=== PATIENT | female | born 1940 | race Caucasian/White ===

== ENCOUNTER 2019-02-18 14:28 | Inpatient (IN) | payer MEDICARE ==
[~2019-02-18] VITALS: Ht 154.9 cm; Wt 73.9 kg
--- OUTSIDE RECORDS SUMMARY | 2019-02-18 14:32 | XMS REPORT | Continuity of Care Document ---
Author Author [employer] Address Unknown Phone Unavailable Care Team Providers Care Mathematical Engineer Name Role Phone [employer] Unavailable Unavailable Problems Problem Status Onset Date Classification Date Reported Comments Source Discharge Diagnosis: Fall 04/09/2017 04/12/2017 [facility] Discharge Diagnosis: Finger fracture 04/09/2017 04/12/2017 [facility] SDH Active 04/09/2017 [facility] FALL W/ NOSE AND HAND INJURY Active [facility] Medications Medication Details Route Status Patient Instructions Ordering Provider Order Date Source niCARdipine 40 mg/ NS 200 ml IV Soln (premix) 40 mg 40 mg, 200 mL, Rate: Titrate, Start Dose: 5 mg/hr, Titration: 2.5 mg/hr every 15 minutes, Goal(s): Goal systolic 170-180, Max Dose: 15 mg/hr, Route: IV, Dosing Weight 72.727 kg, Total Volume: 200, Start date: 04/09/17 19:21:00 CDT, Duration: 30 day, S...Notes: Same as: Cardene Concentration: (0.2 mg /1 ml ) No Longer Active 04/10/2017 [facility] Keppra 1,000 mg, Route: IV, ONCE, Dosing Weight 72.727, kg, Start date: 04/09/17 19:18:00 CDT, Stop date: 04/09/17 19:18:00 CDTNotes: Same as Keppra Mix with 100 mL NS, LR or D5W MEDICATION WASTE Product Size: 500 mg Product Wasted: ___ mg Inactive 04/10/2017 [facility] Saline Flush 0.9% 10 mL, Route: IVP, Drug Form: INJ, Dosing Weight 72.727, kg, PRN, PRN Line Flush, Start date: 04/09/17 19:16:00 CDT, Duration: 30 day, Stop date: 05/09/17 19:15:00 CDTNotes: (Same as: BD Posiflush) No Longer Active 04/10/2017 [facility] Adacel (Tdap) 0.5 ml, Route: IM, Drug Form: SUSP, Dosing Weight 72.727, kg, ONCE, Start date: 04/09/17 16:45:00 CDT, Stop date: 04/09/17 16:45:00 CDT Inactive 04/09/2017 [facility] 0.5 ML Bordetella pertussis filamentous hemagglutinin vaccine, inactivated 0.01 MG/ML / Bordetella pertussis fimbriae 2/3 vaccine, inactivated 0.01 MG/ML / Bordetella pertussis pertactin vaccine, inactivated 0.006 MG/ML / Bordetella pertussis toxoid vacci 0.5 mL, Route: IM, Drug Form: SUSP, Dosing Weight 72.727, kg, ONCE, STAT, Start date: 04/09/17 15:48:00 CDT, Stop date: 04/09/17 15:48:00 CDTNotes: (Tdap ) For Adolecent and Adult use For IM Use. Same as: Adacel (Tdap) Inactive 04/09/2017 [facility] Allergies, Adverse Reactions, Alerts No Known Medication Allergies Immunizations No Data Provided for This Section Results Order Name Results Value Reference Range Date Interpretation Comments Source DRUG SCREEN U Phencyc Scr Negative *NA* (04/09/17 8:19 PM) Negative 04/10/2017 [facility] DRUG SCREEN U Cannab Scr Negative *NA* (04/09/17 8:19 PM) Negative 04/10/2017 [facility] DRUG SCREEN U Opiate Scr Negative *NA* (04/09/17 8:19 PM) Negative 04/10/2017 [facility] DRUG SCREEN UDS Note See Note *NA* (04/09/17 8:19 PM) 04/10/2017 [facility] DRUG SCREEN U Benzodia Scr Negative *NA* (04/09/17 8:19 PM) Negative 04/10/2017 [facility] DRUG SCREEN U Cocaine Scr Negative *NA* (04/09/17 8:19 PM) Negative 04/10/2017 [facility] DRUG SCREEN U Amph Scr Negative *NA* (04/09/17 8:19 PM) Negative 04/10/2017 [facility] DRUG SCREEN U Sanjuana Scr Negative *NA* (04/09/17 8:19 PM) Negative 04/10/2017 [facility] URINE AND STOOL UA WBC 0-2 /HPF None Seen /HPF 04/10/2017 [facility] URINE AND STOOL UA Sq Epi Rare /LPF Few /LPF 04/10/2017 [facility] URINE AND STOOL UA RBC None Seen (04/09/17 8:19 PM) 0 - 2 04/10/2017 [facility] URINE AND STOOL UA Leuk Est Negative (04/09/17 8:19 PM) Negative 04/10/2017 [facility] URINE AND STOOL UA Ketones Negative mg/dL Negative mg/dL 04/10/2017 [facility] URINE AND STOOL UA Nitrite Negative (04/09/17 8:19 PM) Negative 04/10/2017 [facility] URINE AND STOOL UA Spec Grav 1.010 <=1.030 04/10/2017 [facility] URINE AND STOOL UA pH 7.5 5.0 - 8.0 04/10/2017 [facility] URINE AND STOOL UA Protein Negative mg/dL Negative mg/dL 04/10/2017 [facility] URINE AND STOOL UA Glucose Negative mg/dL Negative mg/dL 04/10/2017 [facility] URINE AND STOOL UA Bili Negative *NA* (04/09/17 8:19 PM) Negative 04/10/2017 [facility] URINE AND STOOL UA Blood Negative (04/09/17 8:19 PM) Negative 04/10/2017 [facility] URINE AND STOOL UA Urobilinogen 0.2 0.1 - 1.0 04/10/2017 [facility] URINE AND STOOL UA Turbidity Clear (04/09/17 8:19 PM) Clear 04/10/2017 [facility] URINE AND STOOL UA Color Yellow *NA* (04/09/17 8:19 PM) Yellow 04/10/2017 [facility] CARDIAC ENZYMES Troponin-I 0.04 0.00 - 0.40 04/10/2017 [facility] CARDIAC ENZYMES Troponin-T <0.010 0.000 - 0.100 04/10/2017 [facility] CARDIAC ENZYMES Total CK 232 12 - 191 04/10/2017 [facility] CARDIAC ENZYMES CK MB 2.4 0.5 - 3.6 04/10/2017 [facility] CARDIAC ENZYMES CK MB Index 1.0 0.0 - 2.5 04/10/2017 [facility] ELECTROLYTES Chloride Lvl 107 95 - 109 04/10/2017 [facility] ELECTROLYTES AGAP 14.9 10.0 - 20.0 04/10/2017 [facility] ELECTROLYTES Calcium Lvl 9.3 8.5 - 10.5 04/10/2017 [facility] ELECTROLYTES CO2 27 24 - 32 04/10/2017 [facility] ELECTROLYTES Potassium Lvl 4.9 3.5 - 5.1 04/10/2017 Result Comment: Specimen Moderately Hemolyzed. [facility] ELECTROLYTES Sodium Lvl 144 135 - 145 04/10/2017 [facility] ELECTROLYTES eGFR 90 04/10/2017 Result Comment: The eGFR is calculated using the CKD-EPI formula. In most young, healthy individuals the eGFR will be >90 mL/min/1.73m2. The eGFR declines with age. An eGFR of 60-89 may be normal in some populations, particularly the elderly, for whom the CKD-EPI formula has not been extensively validated. Use of the eGFR is not recommended in the following populations:

Individuals with unstable creatinine concentrations, including patients and those with serious co-morbid conditions.

Patients with extremes in muscle mass or diet.

The data above are obtained from the National Kidney Disease Education Program (NKDEP) which additionally recommends that when the eGFR is used in patients with extremes of body mass index for purposes of drug dosing, the eGFR should be multiplied by the estimated BMI. [facility] ELECTROLYTES BUN 12 7 - 22 04/10/2017 [facility] ELECTROLYTES Glucose Lvl 106 70 - 99 04/10/2017 [facility] ELECTROLYTES Creatinine Lvl 0.59 0.50 - 1.40 04/10/2017 [facility] BLOOD BANK RESULTS ABO/Rh O POS 04/10/2017 [facility] BLOOD BANK RESULTS Antibody Scrn Negative (04/09/17 7:29 PM) 04/10/2017 [facility] CHEM PANEL Lactic Acid Lvl 1.0 0.5 - 2.2 04/10/2017 [facility] HEMATOLOGY Segs-Bands # 12.3 1.5 - 8.1 04/10/2017 [facility] HEMATOLOGY Eosinophils 0.5 0.0 - 4.0 04/10/2017 [facility] HEMATOLOGY Eosinophils # 0.1 0.0 - 0.5 04/10/2017 [facility] HEMATOLOGY Monocytes # 0.6 0.0 - 0.8 04/10/2017 [facility] HEMATOLOGY Lymphocytes # 1.3 1.0 - 5.5 04/10/2017 [facility] HEMATOLOGY Basophils 0.1 0.0 - 1.0 04/10/2017 [facility] HEMATOLOGY Monocytes 4.4 2.0 - 12.0 04/10/2017 [facility] HEMATOLOGY Lymphocytes 8.8 20.0 - 40.0 04/10/2017 [facility] HEMATOLOGY Segs 86.2 45.0 - 75.0 04/10/2017 [facility] HEMATOLOGY MPV 9.7 7.4 - 10.4 04/10/2017 [facility] HEMATOLOGY RDW 15.6 11.5 - 14.5 04/10/2017 [facility] HEMATOLOGY Platelet 266 133 - 450 04/10/2017 [facility] HEMATOLOGY MCHC 32.7 32.0 - 36.0 04/10/2017 [facility] HEMATOLOGY MCH 28.6 27.0 - 31.0 04/10/2017 [facility] HEMATOLOGY Hct 44.2 36.0 - 48.0 04/10/2017 [facility] HEMATOLOGY MCV 87.5 80.0 - 98.0 04/10/2017 [facility] HEMATOLOGY Hgb 14.5 12.0 - 16.0 04/10/2017 [facility] HEMATOLOGY RBC 5.05 4.20 - 5.40 04/10/2017 [facility] HEMATOLOGY WBC 14.3 3.7 - 10.4 04/10/2017 [facility] HEMATOLOGY PT 12.7 12.0 - 14.7 04/10/2017 [facility] HEMATOLOGY INR 0.93 0.85 - 1.17 04/10/2017 [facility] HEMATOLOGY PTT 27.8 22.9 - 35.8 04/10/2017 [facility] HEMATOLOGY K-time Rapid 1.8 0.6 - 2.3 04/10/2017 [facility] HEMATOLOGY Angle Rapid 76 64 - 80 04/10/2017 [facility] HEMATOLOGY ACT (TEG) Rapid 105 86 - 118 04/10/2017 [facility] HEMATOLOGY R-time Rapid 0.6 0.4 - 0.7 04/10/2017 [facility] HEMATOLOGY Split Point Rapid 0.5 04/10/2017 [facility] HEMATOLOGY G-value Rapid 8.7 5.0 - 11.6 04/10/2017 [facility] HEMATOLOGY Max Amplitude Rapid 63 52 - 71 04/10/2017 [facility] HEMATOLOGY Estimated % Lysis Rapid 0.0 0.0 - 7.5 04/10/2017 [facility] TOXICOLOGY Etoh (%) <0.003 % 04/10/2017 [facility] TOXICOLOGY Ethanol Lvl <3.0 mg/dL 04/10/2017 [facility] Pathology Reports No Data Provided for This Section Diagnostic Reports Report Value Date Source Hand 3 views DX EXAM: XR RIGHT HAND 3 VIEWS DATE: 04/09/2017 7:33 PM CDT INDICATION: Splinting of fracture COMPARISON: None. TECHNIQUE: PA, lateral and oblique radiographs of the hand UT SECTION: ER FINDINGS: Splint overlies the fifth phalanx, limiting evaluation of fine osseous detail. No significant change in appearance of the comminuted right proximal fifth phalanx base fracture. No other acute fracture or malalignment is seen. Moderate soft tissue swelling overlying the ulnar aspect of the hand. IMPRESSION: No significant change in appearance of the comminuted proximal right fifth phalanx base fracture after splinting. 04/09/2017 [facility] Brain wo contrast CT EXAM: CT HEAD WITHOUT CONTRAST DATE: 04/09/2017 8:30 PM CDT INDICATION: 76 years old Female patient with history of - stability. TECHNIQUE: Multiple axial images were obtained through the head from vertex to the skull base. Axial bone algorithm reconstruction images are provided. COMPARISON: CT head 04/09/2017 at 1557 hours. FINDINGS: Previously identified suspected small subdural hematoma along the falx is less conspicuous on the current exam. No acute new intracranial hemorrhage is identified. The ventricles are normal in size. Mild periventricular and subcortical white matter hypodensity, nonspecific and most commonly secondary to chronic small vessel ischemia. The apple-white matter differentiation is maintained. No pathologic extra axial fluid is identified. Polypoid mucosal thickening of bilateral maxillary sinuses. No mastoid effusion is identified. IMPRESSION: Previously identified suspected small subdural hematoma along the falx is less conspicuous on the current exam. No acute new intracranial hemorrhage is identified. 04/09/2017 [facility] Chest 1view DX EXAM: XR CHEST 1 VIEW DATE: 04/09/2017 8:01 PM CDT INDICATION: - malignant HTN COMPARISON: None. TECHNIQUE: AP chest UT SECTION: ER FINDINGS: Lines, tubes and hardware: None. Lungs and pleura: No pulmonary or pleural based abnormality is identified. Pulmonary vascularity is normal. Heart and mediastinum: Cardiomegaly present. The mediastinal contours are normal. Bones: No acute bony abnormality is identified. Degenerative changes are seen throughout the thoracic spine. IMPRESSION: Cardiomegaly with no acute cardiopulmonary abnormality. 04/09/2017 [facility] Hand 3 views DX Right hand 3 views DX, 04/09/2017 3:48 PM CDT HISTORY: Pain, Trauma - FALL COMPARISON: None FINDINGS: Acute comminuted intra-articular fracture involving the base of the 5th proximal phalanx. Associated dorsal angulation. No additional fractures. Associated soft tissue swelling. IMPRESSION: Acute comminuted intra-articular fracture of the 5th proximal phalanx. SL: [id number] 04/09/2017 [facility] Knee 3 views DX Left knee 3 views DX, 04/09/2017 3:48 PM CDT HISTORY: Pain, Trauma - FALL COMPARISON: None FINDINGS: No evidence for acute fracture. Joint space are maintained. Soft tissues unremarkable. Negative for joint effusion. IMPRESSION: No acute osseous abnormality SL: [id number] 04/09/2017 [facility] Facial bone wo contrast CT CT face without contrast 04/09/2017 HISTORY: Fall on face. Multiple abrasions. PROCEDURE: 2 mm axial images through the face were obtained without contrast. Coronal and sagittal reconstructed images were performed. DLP: [id number] No prior exams are available for comparison. FINDINGS: The visualized mastoid air cells are clear. Bilateral maxillary mucous retention cysts are present, left greater than right. There is mild left prefrontal scalp soft tissue swelling. Mandible is intact. Pterygoid plates, maxillary sinus vital, lateral orbital vital, zygomatic arches, nasal bones, and nasal septum are intact. Right nasal septal deviation is noted. There is mild soft tissue swelling anterior to the mandible. Intraorbital fat, extraocular muscles, and optic nerves are grossly unremarkable. Left holly bullosa is noted. The ostiomeatal complex is patent bilaterally. The inferior orbital vital are intact on the coronal imaging. Possible hemangioma in the dense vertebral body is incompletely characterized. IMPRESSION: No acute facial fracture identified. SL: YUKI 04/09/2017 [facility] Brain wo contrast CT CT head without contrast 04/09/2017 HISTORY: Face abrasions. Fall. PROCEDURE: Multiple axial images from the skull base to the skull vertex were obtained without contrast. Coronal and sagittal reconstructed images were performed. DLP: [id number] No prior exams are available for comparison. FINDINGS: The visualized mastoid air cells are clear. Bilateral maxillary mucous retention cysts are noted. There is no air-fluid level in the visualized paranasal sinuses. Calvarium is intact. No parenchymal hemorrhage, midline shift, hydrocephalus, or mass lesion is present. There is increased hyperdense thickening of the interhemispheric fissure measuring 3 mm. No associated mass effect is noted. IMPRESSION: 1. Possible acute 3 mm interhemispheric fissure subdural hematoma. 2. No parenchymal hemorrhage, infarct, or mass lesion. Findings were discussed with Dr. Henry by Dr. Hutton at 4:35 PM on 04/09/2017. SL: YUKI 04/09/2017 [facility] Consultation Notes No Data Provided for This Section Discharge Summaries No Data Provided for This Section History and Physicals No Data Provided for This Section Vital Signs Vital Sign Value Date Comments Source Respitory Rate 19 04/10/2017 [facility] Temperature Oral (F) 98.4 F 04/10/2017 [facility] Heart Rate 87 04/10/2017 [facility] Systolic (mm Hg) 153 04/10/2017 [facility] Diastolic (mm Hg) 78 04/10/2017 [facility] Temperature Oral (F) 98.6 F 04/10/2017 [facility] Respitory Rate 17 04/10/2017 [facility] Systolic (mm Hg) 156 04/10/2017 [facility] Diastolic (mm Hg) 82 04/10/2017 [facility] Heart Rate 95 04/10/2017 [facility] Systolic (mm Hg) 144 04/10/2017 [facility] Diastolic (mm Hg) 89 04/10/2017 [facility] Respitory Rate 20 04/10/2017 [facility] Heart Rate 94 04/10/2017 [facility] Weight 72.727 04/10/2017 [facility] BMI Calculated 26.68 04/10/2017 [facility] Height 165.1 cm 04/10/2017 [facility] Temperature Oral (F) 98.0 F 04/10/2017 [facility] Heart Rate 95 04/09/2017 [facility] Respitory Rate 18 04/09/2017 [facility] Systolic (mm Hg) 194 04/09/2017 [facility] Diastolic (mm Hg) 79 04/09/2017 [facility] Systolic (mm Hg) 198 04/09/2017 [facility] Diastolic (mm Hg) 91 04/09/2017 [facility] Heart Rate 96 04/09/2017 [facility] Respitory Rate 18 04/09/2017 [facility] Systolic (mm Hg) 194 04/09/2017 [facility] Diastolic (mm Hg) 104 04/09/2017 [facility] Respitory Rate 18 04/09/2017 [facility] Heart Rate 97 04/09/2017 [facility] Weight 72.727 04/09/2017 [facility] BMI Calculated 26.68 04/09/2017 [facility] Temperature Oral (F) 98.0 F 04/09/2017 [facility] Height 165.1 cm 04/09/2017 [facility] Encounters Location Location Details Encounter Type Encounter Number Reason For Visit Attending Provider ADM Date DC Date Status Source [facility] Emergency [id number] Miguel Angel Hernandez 04/09/2017 04/09/2017 [facility] Emergency [id number] Ryan Benson 04/10/2017 04/10/2017 [facility] Procedures No Data Provided for This Section Assessment and Plan No Data Provided for This Section Plan of Care No Data Provided for This Section Social History Social History Date Source Social History TypeResponse Smoking Status Never smoker; Exposure to Tobacco Smoke None; Cigarette Smoking Last 365 Days No; Reg Smoking Cessation Counseling No 04/10/2017 [facility] Social History TypeResponse Smoking Status Never smoker; Exposure to Tobacco Smoke None; Cigarette Smoking Last 365 Days No; Reg Smoking Cessation Counseling No 04/10/2017 [facility] Family History No Data Provided for This Section Advance Directives No Data Provided for This Section Functional Status No Data Provided for This Section
--- OUTSIDE RECORDS SUMMARY | 2019-02-18 14:33 | XMS REPORT | Summary of Care ---
Author Author [facility] Address Unknown Phone Unavailable Encounter ALINE Ramirez(FENG) [phone] Date(s): 04/09/17 - 04/09/17 [facility] [address] [facility] provided by [facility] [place] [address]- Discharge Diagnosis: Fall Discharge Diagnosis: Finger fracture Discharge Disposition: Home or Self Care Attending Physician: Sterling Renteria MD Admitting Physician: Ryan Benson MD Vital Signs 1 2 3 Most recent to oldest [Reference Range]: 165.1 cm (04/09/17 7:01 PM) Height 98.4 DegF (04/09/17 11:23 PM) 98.6 DegF (04/09/17 10:51 PM) 98.0 DegF (04/09/17 7:01 PM) Temperature Oral [96.4-99.1 DegF] 153/78 mmHg *HI* (04/09/17 11:23 PM) 156/82 mmHg *HI* (04/09/17 9:30 PM) 144/89 mmHg *HI* (04/09/17 8:40 PM) Blood Pressure [90-140/60-90 mmHg] 19 BRMIN (04/09/17 11:23 PM) 17 BRMIN (04/09/17 9:30 PM) 20 BRMIN (04/09/17 8:40 PM) Respiratory Rate [14-20 BRMIN] 87 bpm (04/09/17 11:23 PM) 95 bpm (04/09/17 9:30 PM) 94 bpm (04/09/17 8:40 PM) Peripheral Pulse Rate [60-100 bpm] 72.727 kg (04/09/17 7:01 PM) Weight 26.68 m2 (04/09/17 7:01 PM) Body Mass Index Problem List No data available for this section Allergies, Adverse Reactions, Alerts Substance Reaction Severity Status NKDA Active Medications Keppra + sodium chloride 0.9% 100 mL INJ (for IV set) 100 mL 1,000 mg, Route: IV, ONCE, Dosing Weight 72.727, kg, Start date: 04/09/17 19:18: 00 CDT, Stop date: 04/09/17 19:18:00 CDT Notes: Same as KeppraMix with 100 mL NS, LR or D5W MEDICATION WASTE Prod uct Size: 500 mgProduct Wasted: ___ mg Start Date: 04/09/17 Stop Date: 04/09/17 Status: Completed niCARdipine 40 mg/ NS 200 ml IV Soln (premix) 40 mg 40 mg, 200 mL, Rate: Titrate, Start Dose: 5 mg/hr, Titration: 2.5 mg/hr every 15 minutes, Goal(s): Goal systolic 170-180, Max Dose: 15 mg/hr, Route: IV, Dosing Weight 72.727 kg, Total Volume: 200, Start date: 04/09/17 19:21:00 CDT, Duration : 30 day, S... Notes: Same as: CardeneConcentration: (0.2 mg /1 ml ) Start Date: 04/09/17 Stop Date: 04/10/17 Status: Discontinued Saline Flush 0.9% 10 mL, Route: IVP, Drug Form: INJ, Dosing Weight 72.727, kg, PRN, PRN Line Flush , Start date: 04/09/17 19:16:00 CDT, Duration: 30 day, Stop date: 05/09/17 19:15 :00 CDT Notes: (Same as: BD Posiflush) Start Date: 04/09/17 Stop Date: 04/10/17 Status: Discontinued Results BLOOD BANK RESULTS Most recent to 1 oldest [Reference Range]: ABO/Rh O POS *Unknown* (04/09/17 7:29 PM) Antibody Scrn Negative (04/09/17 7:29 PM) ELECTROLYTES Most recent to 1 oldest [Reference Range]: Sodium Lvl [135-145 144 mEq/L mEq/L] (04/09/17 8:16 PM) Potassium Lvl 4.9 mEq/L 1 [3.5-5.1 mEq/L] (04/09/17 8:16 PM) Chloride Lvl [95-109 107 mEq/L mEq/L] (04/09/17 8:16 PM) CO2 [24-32 mEq/L] 27 mEq/L (04/09/17 8:16 PM) AGAP [10.0-20.0 14.9 mEq/L mEq/L] (04/09/17 8:16 PM) 1Result Comment: Specimen Moderately Hemolyzed. CHEM PANEL Most recent to 1 oldest [Reference Range]: Creatinine Lvl 0.59 mg/dL [0.50-1.40 mg/dL] (04/09/17 8:16 PM) eGFR 90 mL/min/1.73m2 1 *NA* (04/09/17 8:16 PM) BUN [7-22 mg/dL] 12 mg/dL (04/09/17 8:16 PM) Glucose Lvl [70-99 106 mg/dL mg/dL] *HI* (04/09/17 8:16 PM) Calcium Lvl 9.3 mg/dL [8.5-10.5 mg/dL] (04/09/17 8:16 PM) Lactic Acid Lvl 1.0 mMol/L [0.5-2.2 mMol/L] (04/09/17 7:29 PM) 1Result Comment: The eGFR is calculated using the [...] from the National Kidney Disease Education Program ( NKDEP) which additionally recommends that when the eGFR is used in patients with extremes of body mass index for purposes of drug dosing, the eGFR should be mul tiplied by the estimated BMI. CARDIAC ENZYMES Most recent to 1 oldest [Reference Range]: Total CK [12-191 232 unit/L unit/L] *HI* (04/09/17 8:16 PM) CK MB [0.5-3.6 2.4 ng/mL ng/mL] (04/09/17 8:16 PM) CK MB Index 1.0 [0.0-2.5] (04/09/17 8:16 PM) Troponin-T <0.010 ng/mL [0.000-0.100 ng/mL] (04/09/17 8:16 PM) Troponin-I 0.04 ng/mL [0.00-0.40 ng/mL] (04/09/17 8:16 PM) DRUG SCREEN Most recent to 1 oldest [Reference Range]: U Amph Scr Negative [Negative] *NA* (04/09/17 8:19 PM) U Sanjuana Scr Negative [Negative] *NA* (04/09/17 8:19 PM) U Benzodia Scr Negative [Negative] *NA* (04/09/17 8:19 PM) U Cocaine Scr Negative [Negative] *NA* (04/09/17 8:19 PM) U Opiate Scr Negative [Negative] *NA* (04/09/17 8:19 PM) U Phencyc Scr Negative [Negative] *NA* (04/09/17 8:19 PM) U Cannab Scr Negative [Negative] *NA* (04/09/17 8:19 PM) UDS Note See Note *NA* (04/09/17 8:19 PM) TOXICOLOGY Most recent to 1 oldest [Reference Range]: Etoh (%) <0.003 % (04/09/17 7:29 PM) Ethanol Lvl <3.0 mg/dL (04/09/17 7:29 PM) URINE AND STOOL Most recent to 1 oldest [Reference Range]: UA Turbidity [Clear] Clear (04/09/17 8:19 PM) UA Color [Yellow] Yellow *NA* (04/09/17 8:19 PM) UA pH [5.0-8.0] 7.5 (04/09/17 8:19 PM) UA Spec Grav 1.010 [<=1.030] (04/09/17 8:19 PM) UA Glucose [Negative Negative mg/dL mg/dL] (04/09/17 8:19 PM) UA Blood [Negative] Negative (04/09/17 8:19 PM) UA Ketones [Negative Negative mg/dL mg/dL] *NA* (04/09/17 8:19 PM) UA Protein [Negative Negative mg/dL mg/dL] (04/09/17 8:19 PM) UA Urobilinogen 0.2 EU/dL [0.1-1.0 EU/dL] (04/09/17 8:19 PM) UA Bili [Negative] Negative *NA* (04/09/17 8:19 PM) UA Leuk Est Negative [Negative] (04/09/17 8:19 PM) UA Nitrite Negative [Negative] (04/09/17 8:19 PM) UA WBC [None Seen 0-2 /HPF /HPF] (04/09/17 8:19 PM) UA RBC [0-2] None Seen (04/09/17 8:19 PM) UA Sq Epi [Few /LPF] Rare /LPF (04/09/17 8:19 PM) HEMATOLOGY Most recent to 1 oldest [Reference Range]: WBC [3.7-10.4 K/CMM] 14.3 K/CMM *HI* (04/09/17 7:29 PM) RBC [4.20-5.40 5.05 M/CMM M/CMM] (04/09/17 7:29 PM) Hgb [12.0-16.0 g/dL] 14.5 g/dL (04/09/17 7:29 PM) Hct [36.0-48.0 %] 44.2 % (04/09/17 7:29 PM) MCV [80.0-98.0 fL] 87.5 fL (04/09/17 7:29 PM) MCH [27.0-31.0 pg] 28.6 pg (04/09/17 7:29 PM) MCHC [32.0-36.0 32.7 g/dL g/dL] (04/09/17 7:29 PM) RDW [11.5-14.5 %] 15.6 % *HI* (04/09/17 7:29 PM) Platelet [133-450 266 K/CMM K/CMM] (04/09/17 7:29 PM) MPV [7.4-10.4 fL] 9.7 fL (04/09/17 7:29 PM) Segs [45.0-75.0 %] 86.2 % *HI* (04/09/17 7:29 PM) Lymphocytes 8.8 % [20.0-40.0 %] *LOW* (04/09/17 7:29 PM) Monocytes [2.0-12.0 4.4 % %] (04/09/17 7:29 PM) Eosinophils [0.0-4.0 0.5 % %] (04/09/17 7:29 PM) Basophils [0.0-1.0 0.1 % %] (04/09/17 7:29 PM) Segs-Bands # 12.3 K/CMM [1.5-8.1 K/CMM] *HI* (04/09/17 7:29 PM) Lymphocytes # 1.3 K/CMM [1.0-5.5 K/CMM] (04/09/17 7:29 PM) Monocytes # [0.0-0.8 0.6 K/CMM K/CMM] (04/09/17 7:29 PM) Eosinophils # 0.1 K/CMM [0.0-0.5 K/CMM] (04/09/17 7:29 PM) PT [12.0-14.7 12.7 seconds seconds] (04/09/17 7:29 PM) INR [0.85-1.17] 0.93 (04/09/17 7:29 PM) PTT [22.9-35.8 27.8 seconds seconds] (04/09/17 7:29 PM) ACT (TEG) Rapid 105 seconds [86-118 seconds] (04/09/17 7:29 PM) [place] Rapid 0.5 minutes *NA* (04/09/17 7:29 PM) R-time Rapid 0.6 minutes [0.4-0.7 minutes] (04/09/17 7:29 PM) K-time Rapid 1.8 minutes [0.6-2.3 minutes] (04/09/17 7:29 PM) Angle Rapid [64-80 76 degrees degrees] (04/09/17:29 PM) Max Amplitude Rapid 63 mm [52-71 mm] (04/09/17 7:29 PM) G-value Rapid 8.7 K d/sc [5.0-11.6 K d/sc] (04/09/17 7:29 PM) Estimated % Lysis 0.0 % Rapid [0.0-7.5 %] (04/09/17 7:29 PM) Immunizations No data available for this section Procedures No data available for this section Social History Social History Type Response Smoking Status Never smoker; Exposure to Tobacco Smoke None; Cigarette Smoking Last 365 Days No; Reg Smoking Cessation Counseling No Assessment and Plan No data available for this section
--- OUTSIDE RECORDS SUMMARY | 2019-02-18 14:34 | XMS REPORT | Summary of Care ---
Author Author [facility] Organization [facility] Address Unknown Phone Unavailable Encounter HQ Ashley(FENG) [phone] Date(s): 04/09/17 - 04/09/17 [facility] [address] [place] [address]- Discharge Disposition: Home or Self Care Attending Physician: Miguel Angel Hernandez DO Vital Signs 1 2 3 Most recent to oldest [Reference Range]: 165.1 cm (04/09/17 3:01 PM) Height 98.0 DegF (04/09/17 3:01 PM) Temperature Oral [96.4-99.1 DegF] 194/79 mmHg *HI* (04/09/17 5:45 PM) 198/91 mmHg *HI* (04/09/17 5:38 PM) 194/104 mmHg *HI* (04/09/17 5:30 PM) Blood Pressure [90-140/60-90 mmHg] 18 BRMIN (04/09/17 5:45 PM) 18 BRMIN (04/09/17 5:38 PM) 18 BRMIN (04/09/17 5:30 PM) Respiratory Rate [14-20 BRMIN] 95 bpm (04/09/17 5:45 PM) 96 bpm (04/09/17 5:38 PM) 97 bpm (04/09/17 5:30 PM) Peripheral Pulse Rate [60-100 bpm] 72.727 kg (04/09/17 3:01 PM) Weight 26.68 m2 (04/09/17 3:01 PM) Body Mass Index Problem List No data available for this section Allergies, Adverse Reactions, Alerts Substance Reaction Severity Status NKDA Active Medications Adacel (Tdap) 0.5 ml, Route: IM, Drug Form: SUSP, Dosing Weight 72.727, kg, ONCE, Start date: 04/09/17 16:45:00 CDT, Stop date: 04/09/17 16:45:00 CDT Start Date: 04/09/17 Stop Date: 04/09/17 Status: Deleted tetanus/diphth/pertussis (Tdap) adult/adol 5 units-2 units-15.5 mcg/0.5 mL intra muscular suspension 0.5 mL, Route: IM, Drug Form: SUSP, Dosing Weight 72.727, kg, ONCE, STAT, Start date: 04/09/17 15:48:00 CDT, Stop date: 04/09/17 15:48:00 CDT Notes: (Tdap ) For Adolecent and Adult use For IM Use. Same as: Adacel (Tdap) Start Date: 04/09/17 Stop Date: 04/09/17 Status: Ordered Results No data available for this section Immunizations No data available for this section Procedures No data available for this section Social History Social History Type Response Smoking Status Never smoker; Exposure to Tobacco Smoke None; Cigarette Smoking Last 365 Days No; Reg Smoking Cessation Counseling No Assessment and Plan No data available for this section
[2019-02-18] MEDS ORDERED: ACETAMINOPHEN 325 MG TAB PO ONE (15:00)
[2019-02-18] MEDS ORDERED: FAMOTIDINE 20 MG/2 ML VIAL IV ONE (15:00)
[2019-02-18] MEDS ORDERED: ASPIRIN 81 MG CHEW TAB PO ONE ×2 (15:00→16:30)
[2019-02-18] MEDS ORDERED: SODIUM CHLORIDE 0.9% 1000ML 1,000 ML IV STA (15:04)
[2019-02-18] MEDS ORDERED: METOPROLOL TARTRATE INJ 1 MG/ML VIAL IV SCH (15:15)
[2019-02-18 15:24] LABS: BASOPHILS # (AUTO) 0.1 (0.0-0.1); BASOPHILS % 0.7 % (0.0-1.0); EOSINOPHILS # (AUTO) 0.4 (0.0-0.4); EOSINOPHILS % 3.6 % (0.0-6.0); HEMATOCRIT 39.6 % (34.2-44.1); HEMOGLOBIN 12.9 g/dL (12.0-16.0); LYMPHOCYTES # (AUTO) 0.9 (1.0-3.2); LYMPHOCYTES % 8.9 % (18.0-39.1); MEAN CORPUSCULAR HEMOGLOBIN 28.6 pg (28-32); MEAN CORPUSCULAR HGB CONC 32.6 g/dL (31-35); MEAN CORPUSCULAR VOLUME 87.8 fL (81-99); MONOCYTES # (AUTO) 0.6 (0.2-0.8); MONOCYTES % 5.7 % (4.4-11.3); NEUTROPHILS # (AUTO) 8.5 (2.1-6.9); NEUTROPHILS % 80.8 % (38.7-80.0); PLATELET COUNT 331 x10e3/uL (140-360); RED BLOOD COUNT 4.51 x10e6/uL (3.6-5.1); RED CELL DISTRIBUTION WIDTH 14.3 % (11.7-14.4)
[2019-02-18 15:44] LABS: ALANINE AMINOTRANSFERASE 44 IU/L (0-55); ALBUMIN 3.3 g/dL (3.5-5.0); ALBUMIN/GLOBULIN RATIO 0.8 (0.8-2.0); ALKALINE PHOSPHATASE 125 IU/L (40-150); ANION GAP 13.6 mmol/L (8-16); BLOOD UREA NITROGEN 19 mg/dL (7-26); BUN/CREATININE RATIO 22 (6-25); CALCIUM 9.1 mg/dL (8.4-10.2); CARBON DIOXIDE 24 mmol/L (22-29); CHLORIDE 107 mmol/L (98-107); CREATINE KINASE 57 IU/L (29-168); CREATININE, SERUM 0.87 mg/dL (0.57-1.11); EST GLOMERULAR FILTRATION RATE > 60 ML/MIN (60-); GLUCOSE 109 mg/dL (74-118); POTASSIUM 3.6 mmol/L (3.5-5.1); SODIUM 141 mmol/L (136-145)
--- NOTE | 2019-02-18 15:53 | Diagnostic Imaging Report ---
EXAMINATION: CHEST SINGLE (PORTABLE) INDICATION: Shortness of breath COMPARISON: None FINDINGS: TUBES and LINES: None. LUNGS: The lungs are moderately inflated. There is perihilar fullness and indistinctness of the pulmonary vasculature. Mild patchy opacity at the bilateral lung bases. PLEURA: No large pleural effusion. No pneumothorax. HEART AND MEDIASTINUM: Cardiomegaly. Atherosclerotic calcifications of the thoracic aorta. BONES AND SOFT TISSUES: No acute fracture or dislocation. UPPER ABDOMEN: No free air under the diaphragm. IMPRESSION: Cardiomegaly and pulmonary interstitial edema. Patchy opacity at the bilateral lung bases, likely subsegmental atelectasis or a component of airspace edema. Signed by: Faizan Yeboah MD on 02/18/2019 3:50 PM
[2019-02-18 15:59] LABS: BILIRUBIN,URINE NEGATIVE (NEGATIVE); CLARITY,URINE CLEAR (CLEAR); COLOR,URINE YELLOW (YELLOW); KETONES,URINE NEGATIVE (NEGATIVE); LEUKOCYTE ESTERASE ,URINE NEGATIVE (NEGATIVE); NITRITE,URINE NEGATIVE (NEGATIVE); PROTEIN,URINE DIPSTICK NEGATIVE (NEGATIVE); URINE UROBILINOGEN 0.2 mg/dL (0.2 - 1)
[2019-02-18 16:05] LABS: EPITHELIAL CELLS,URINE RARE /LPF; RBC,URINE 0-5 /HPF (0-5); WBC,URINE (MAN) 0-5 /HPF (0-5)
[2019-02-18] MEDS ORDERED: ENOXAPARIN INJ 80 MG/0.8 ML SYR SC ONE (16:21)
[2019-02-18] MEDS ORDERED: SODIUM CHLORIDE FLUSH 10 ML SYR INJ PRN (16:30)
[2019-02-18] MEDS ORDERED: LISINOPRIL 10 MG TAB PO SCH (17:00)
--- OUTSIDE RECORDS SUMMARY | 2019-02-18 17:02 | XMS REPORT | Continuity of Care Document ---
Author Author [facility] Address Unknown Phone Unavailable Care Team Providers Care Tax Representative Name Role Phone [employer] Unavailable Unavailable Problems Problem Status Onset Date Classification Date Reported Comments Source Discharge Diagnosis: Fall 04/09/2017 04/12/2017 [facility] Discharge Diagnosis: Finger fracture 04/09/2017 04/12/2017 [facility] SDH Active 04/09/2017 [facility] FALL W/ NOSE AND HAND INJURY Active [facility] Medications Medication Details Route Status Patient Instructions [...] /1 ml ) No Longer Active 04/10/2017 [facility] Keppra 1,000 mg, Route: IV, ONCE, Dosing Weight 72.727, kg, Start date: 04/09/17 19:18:00 CDT, Stop date: 04/09/17 19:18:00 CDTNotes: Same as Keppra Mix with 100 mL NS, LR or D5W MEDICATION WASTE Product Size: 500 mg Product Wasted: ___ mg Inactive 04/10/2017 [facility] Saline Flush 0.9% 10 mL, Route: IVP, Drug Form: INJ, Dosing Weight 72.727, kg, PRN, PRN Line Flush, Start date: 04/09/17 19:16:00 CDT, Duration: 30 day, Stop date: 05/09/17 19:15:00 CDTNotes: (Same as: BD Posiflush) No Longer Active 04/10/2017 [facility] Adacel (Tdap) 0.5 ml, Route: IM, Drug Form: SUSP, Dosing Weight 72.727, kg, ONCE, Start date: 04/09/17 16:45:00 CDT, Stop date: 04/09/17 16:45:00 CDT Inactive 04/09/2017 [facility] 0.5 ML Bordetella pertussis filamentous hemagglutinin vaccine, [...] Use. Same as: Adacel (Tdap) Inactive 04/09/2017 [facility] Allergies, Adverse Reactions, Alerts No Known Medication Allergies Immunizations No Data Provided for This Section Results Order Name Results Value Reference Range Date Interpretation Comments Source DRUG SCREEN U Phencyc Scr Negative *NA* (04/09/17 8:19 PM) Negative 04/10/2017 [facility] DRUG SCREEN U Cannab Scr Negative *NA* (04/09/17 8:19 PM) Negative 04/10/2017 [facility] DRUG SCREEN U Opiate Scr Negative *NA* (04/09/17 8:19 PM) Negative 04/10/2017 [facility] DRUG SCREEN UDS Note See Note *NA* (04/09/17 8:19 PM) 04/10/2017 [facility] DRUG SCREEN U Benzodia Scr Negative *NA* (04/09/17 8:19 PM) Negative 04/10/2017 [facility] DRUG SCREEN U Cocaine Scr Negative *NA* (04/09/17 8:19 PM) Negative 04/10/2017 [facility] DRUG SCREEN U Amph Scr Negative *NA* (04/09/17 8:19 PM) Negative 04/10/2017 [facility] DRUG SCREEN U Sanjuana Scr Negative *NA* (04/09/17 8:19 PM) Negative 04/10/2017 [facility] URINE AND STOOL UA WBC 0-2 /HPF None Seen /HPF 04/10/2017 [facility] URINE AND STOOL UA Sq Epi Rare /LPF Few /LPF 04/10/2017 [facility] URINE AND STOOL UA RBC None Seen (04/09/17 8:19 PM) 0 - 2 04/10/2017 [facility] URINE AND STOOL UA Leuk Est Negative (04/09/17 8:19 PM) Negative 04/10/2017 [facility] URINE AND STOOL UA Ketones Negative mg/dL Negative mg/dL 04/10/2017 [facility] URINE AND STOOL UA Nitrite Negative (04/09/17 8:19 PM) Negative 04/10/2017 [facility] URINE AND STOOL UA Spec Grav 1.010 <=1.030 04/10/2017 [facility] URINE AND STOOL UA pH 7.5 5.0 - 8.0 04/10/2017 [facility] URINE AND STOOL UA Protein Negative mg/dL Negative mg/dL 04/10/2017 [facility] URINE AND STOOL UA Glucose Negative mg/dL Negative mg/dL 04/10/2017 [facility] URINE AND STOOL UA Bili Negative *NA* (04/09/17 8:19 PM) Negative 04/10/2017 [facility] URINE AND STOOL UA Blood Negative (04/09/17 8:19 PM) Negative 04/10/2017 [facility] URINE AND STOOL UA Urobilinogen 0.2 0.1 - 1.0 04/10/2017 [facility] URINE AND STOOL UA Turbidity Clear (04/09/17 8:19 PM) Clear 04/10/2017 [facility] URINE AND STOOL UA Color Yellow *NA* (04/09/17 8:19 PM) Yellow 04/10/2017 [facility] CARDIAC ENZYMES Troponin-I 0.04 0.00 - 0.40 04/10/2017 [facility] CARDIAC ENZYMES Troponin-T <0.010 0.000 - 0.100 04/10/2017 [facility] CARDIAC ENZYMES Total CK 232 12 - 191 04/10/2017 [facility] CARDIAC ENZYMES CK MB 2.4 0.5 - 3.6 04/10/2017 [facility] CARDIAC ENZYMES CK MB Index 1.0 0.0 - 2.5 04/10/2017 [facility] ELECTROLYTES Chloride Lvl 107 95 - 109 04/10/2017 [facility] ELECTROLYTES AGAP 14.9 10.0 - 20.0 04/10/2017 [facility] ELECTROLYTES Calcium Lvl 9.3 8.5 - 10.5 04/10/2017 [facility] ELECTROLYTES CO2 27 24 - 32 04/10/2017 [facility] ELECTROLYTES Potassium Lvl 4.9 3.5 - 5.1 04/10/2017 Result Comment: Specimen Moderately Hemolyzed. [facility] ELECTROLYTES Sodium Lvl 144 135 - 145 04/10/2017 [facility] ELECTROLYTES eGFR 90 04/10/2017 Result Comment: The [...] should be multiplied by the estimated BMI. [facility] ELECTROLYTES BUN 12 7 - 22 04/10/2017 [facility] ELECTROLYTES Glucose Lvl 106 70 - 99 04/10/2017 [facility] ELECTROLYTES Creatinine Lvl 0.59 0.50 - 1.40 04/10/2017 [facility] BLOOD BANK RESULTS ABO/Rh O POS 04/10/2017 [facility] BLOOD BANK RESULTS Antibody Scrn Negative (04/09/17 7:29 PM) 04/10/2017 [facility] CHEM PANEL Lactic Acid Lvl 1.0 0.5 - 2.2 04/10/2017 [facility] HEMATOLOGY Segs-Bands # 12.3 1.5 - 8.1 04/10/2017 [facility] HEMATOLOGY Eosinophils 0.5 0.0 - 4.0 04/10/2017 [facility] HEMATOLOGY Eosinophils # 0.1 0.0 - 0.5 04/10/2017 [facility] HEMATOLOGY Monocytes # 0.6 0.0 - 0.8 04/10/2017 [facility] HEMATOLOGY Lymphocytes # 1.3 1.0 - 5.5 04/10/2017 [facility] HEMATOLOGY Basophils 0.1 0.0 - 1.0 04/10/2017 [facility] HEMATOLOGY Monocytes 4.4 2.0 - 12.0 04/10/2017 [facility] HEMATOLOGY Lymphocytes 8.8 20.0 - 40.0 04/10/2017 [facility] HEMATOLOGY Segs 86.2 45.0 - 75.0 04/10/2017 [facility] HEMATOLOGY MPV 9.7 7.4 - 10.4 04/10/2017 [facility] HEMATOLOGY RDW 15.6 11.5 - 14.5 04/10/2017 [facility] HEMATOLOGY Platelet 266 133 - 450 04/10/2017 [facility] HEMATOLOGY MCHC 32.7 32.0 - 36.0 04/10/2017 [facility] HEMATOLOGY MCH 28.6 27.0 - 31.0 04/10/2017 [facility] HEMATOLOGY Hct 44.2 36.0 - 48.0 04/10/2017 [facility] HEMATOLOGY MCV 87.5 80.0 - 98.0 04/10/2017 [facility] HEMATOLOGY Hgb 14.5 12.0 - 16.0 04/10/2017 [facility] HEMATOLOGY RBC 5.05 4.20 - 5.40 04/10/2017 [facility] HEMATOLOGY WBC 14.3 3.7 - 10.4 04/10/2017 [facility] HEMATOLOGY PT 12.7 12.0 - 14.7 04/10/2017 [facility] HEMATOLOGY INR 0.93 0.85 - 1.17 04/10/2017 [facility] HEMATOLOGY PTT 27.8 22.9 - 35.8 04/10/2017 [facility] HEMATOLOGY K-time Rapid 1.8 0.6 - 2.3 04/10/2017 [facility] HEMATOLOGY Angle Rapid 76 64 - 80 04/10/2017 [facility] HEMATOLOGY ACT (TEG) Rapid 105 86 - 118 04/10/2017 [facility] HEMATOLOGY R-time Rapid 0.6 0.4 - 0.7 04/10/2017 [facility] HEMATOLOGY Split Point Rapid 0.5 04/10/2017 [facility] HEMATOLOGY G-value Rapid 8.7 5.0 - 11.6 04/10/2017 [facility] HEMATOLOGY Max Amplitude Rapid 63 52 - 71 04/10/2017 [facility] HEMATOLOGY Estimated % Lysis Rapid 0.0 0.0 - 7.5 04/10/2017 [facility] TOXICOLOGY Etoh (%) <0.003 % 04/10/2017 [facility] TOXICOLOGY Ethanol Lvl <3.0 mg/dL 04/10/2017 [facility] Pathology Reports No Data Provided for This [...] fifth phalanx base fracture after splinting. 04/09/2017 [facility] Brain wo contrast CT EXAM: CT HEAD [...] acute new intracranial hemorrhage is identified. 04/09/2017 [facility] Chest 1view DX EXAM: XR CHEST 1 [...] Cardiomegaly with no acute cardiopulmonary abnormality. 04/09/2017 [facility] Hand 3 views DX Right hand 3 views DX, 04/09/2017 3:48 PM CDT HISTORY: Pain, Trauma - FALL COMPARISON: None FINDINGS: Acute comminuted intra-articular fracture involving the base of the 5th proximal phalanx. Associated dorsal angulation. No additional fractures. Associated soft tissue swelling. IMPRESSION: Acute comminuted intra-articular fracture of the 5th proximal phalanx. SL: [id number] 04/09/2017 [facility] Knee 3 views DX Left knee 3 views DX, 04/09/2017 3:48 PM CDT HISTORY: Pain, Trauma - FALL COMPARISON: None FINDINGS: No evidence for acute fracture. Joint space are maintained. Soft tissues unremarkable. Negative for joint effusion. IMPRESSION: No acute osseous abnormality SL: [id number] 04/09/2017 [facility] Facial bone wo contrast CT CT face [...] acute facial fracture identified. SL: YUKI 04/09/2017 [facility] Brain wo contrast CT CT head without [...] 4:35 PM on 04/09/2017. SL: YUKI 04/09/2017 [facility] Consultation Notes No Data Provided for This Section Discharge Summaries No Data Provided for This Section History and Physicals No Data Provided for This Section Vital Signs Vital Sign Value Date Comments Source Respitory Rate 19 04/10/2017 [facility] Temperature Oral (F) 98.4 F 04/10/2017 [facility] Heart Rate 87 04/10/2017 [facility] Systolic (mm Hg) 153 04/10/2017 [facility] Diastolic (mm Hg) 78 04/10/2017 [facility] Temperature Oral (F) 98.6 F 04/10/2017 [facility] Respitory Rate 17 04/10/2017 [facility] Systolic (mm Hg) 156 04/10/2017 [facility] Diastolic (mm Hg) 82 04/10/2017 [facility] Heart Rate 95 04/10/2017 [facility] Systolic (mm Hg) 144 04/10/2017 [facility] Diastolic (mm Hg) 89 04/10/2017 [facility] Respitory Rate 20 04/10/2017 [facility] Heart Rate 94 04/10/2017 [facility] Weight 72.727 04/10/2017 [facility] BMI Calculated 26.68 04/10/2017 [facility] Height 165.1 cm 04/10/2017 [facility] Temperature Oral (F) 98.0 F 04/10/2017 [facility] Heart Rate 95 04/09/2017 [facility] Respitory Rate 18 04/09/2017 [facility] Systolic (mm Hg) 194 04/09/2017 [facility] Diastolic (mm Hg) 79 04/09/2017 [facility] Systolic (mm Hg) 198 04/09/2017 [facility] Diastolic (mm Hg) 91 04/09/2017 [facility] Heart Rate 96 04/09/2017 [facility] Respitory Rate 18 04/09/2017 [facility] Systolic (mm Hg) 194 04/09/2017 [facility] Diastolic (mm Hg) 104 04/09/2017 [facility] Respitory Rate 18 04/09/2017 [facility] Heart Rate 97 04/09/2017 [facility] Weight 72.727 04/09/2017 [facility] BMI Calculated 26.68 04/09/2017 [facility] Temperature Oral (F) 98.0 F 04/09/2017 [facility] Height 165.1 cm 04/09/2017 [facility] Encounters Location Location Details Encounter Type Encounter Number Reason For Visit Attending Provider ADM Date DC Date Status Source [facility] Emergency [id number] Miguel Angel Hernandez 04/09/2017 04/09/2017 [facility] Emergency [id number] Ryan Benson 04/10/2017 04/10/2017 [facility] Procedures No Data Provided for This Section Assessment and Plan No Data Provided for This Section Plan of Care No Data Provided for This Section Social History Social History Date Source Social History TypeResponse Smoking Status Never smoker; Exposure to Tobacco Smoke None; Cigarette Smoking Last 365 Days No; Reg Smoking Cessation Counseling No 04/10/2017 [facility] Social History TypeResponse Smoking Status Never smoker; Exposure to Tobacco Smoke None; Cigarette Smoking Last 365 Days No; Reg Smoking Cessation Counseling No 04/10/2017 [facility] Family History No Data Provided for This Section Advance Directives No Data Provided for This Section Functional Status No Data Provided for This Section
--- OUTSIDE RECORDS SUMMARY | 2019-02-18 17:03 | XMS REPORT ---
Author Author [facility] Address Unknown Phone Unavailable Care Team Providers Care Assembly Line Upholsterer Name Role Phone Sally BETANCOURT Unavailable Unavailable Problems This patient has no known problems. Allergies, Adverse Reactions, Alerts This patient has no known allergies or adverse reactions. Medications This patient has no known medications. Results Test Description Test Time Test Comments Text Results Atomic Results Result Comments CHEST SINGLE (PORTABLE) 2019-02-18 15:48:00 [place] [id number] [place] [id number] Patient Name: NEVA CUTLER MR #: [id number] : 1940 Age/Sex: 78/F Req #: [id number] Adm Physician: Ordered by: TOSHIA BETANCOURT MD Report #: [id number] Location: ER Room/Bed: Procedure: [id number] DX/CHEST SINGLE (PORTABLE) Exam Date: 02/18/19 Exam Time: 1509 REPORT STATUS: Signed EXAMINATION: CHEST SINGLE (PORTABLE) MILTON CATION: Shortness of breath COMPARISON: None FINDINGS: TUBES and LINES: None. LUNGS: The lungs are moderately inflated. There is perihilar fullness and indistinctness of the pulmonary vasculature. Mild patchy opacity at the bilateral lung bases. PLEURA: No large pleural effusion. No pneumothorax. HEART AND MEDIASTINUM: Cardiomegaly. Atherosclerotic calcifications of the thoracic aorta. BONES AND SOFT TISSUES: No acute fracture or dislocation. UPPER ABDOMEN: No free air under the diaphragm. IMPRESSION: Cardiomegaly and pulmonary interstitial edema. Patchy opacity at the bilateral lung bases, likely subsegmental atelectasis or a component of airspace edema. Signed by: Salome Yeboah MD on 02/18/2019 3:50 PM Dictated By: SALOME YEBOAH MD [id number] Transcribed By: KATYA on 02/18/19 9403 COPY TO: TOSHIA BETANCOURT MD
[2019-02-18] MEDS: METOPROLOL TARTRATE 25 MG TAB PO SCH (17:04)
[2019-02-18] MEDS ORDERED: FUROSEMIDE INJ 10 MG/ML 2 ML VIAL IV ONE (18:15)
--- NOTE | 2019-02-18 18:17 | NUR ---
Recvd patient from ER AAOx3, NOT IN ANY DISTRESS,DR Orellana here for rounds
[2019-02-18] MEDS: POTASSIUM CHLORIDE 20 MEQ TAB CR PO SCH (18:58)
[2019-02-18 19:10] VITALS: BP 131/64
--- NOTE | 2019-02-18 19:57 | Consultation ---
DATE OF CONSULTATION: 02/18/2019 Cardiac Consultation REASON FOR CONSULTATION: Congestive heart failure. HISTORY: A 78-year-old lady, who does not see doctors. She is sick for the last 6 months with progressive shortness of breath, easy fatigability, and congestive heart failure like symptoms. She is at class 3. She fixed an appointment to see Dr. Doshi, however, for the last 3 days, she was not feeling well at all. Her symptoms are shortness of breath at rest with minimal activity, orthopnea, and paroxysmal nocturnal dyspnea. Surprisingly, there is no cough history. There is minimal swelling of the lower extremity. She takes only aspirin. She was seen in Dr. Doshi and EKG showed left bundle branch block with marked sinus tachycardia. She was advised to come to the emergency room. She went to the emergency room, admitted, and cardiac consultations obtained. The patient's symptoms are compatible with advanced congestive heart failure, progressively worse over the last 3 to 4 months. The patient is at class 4 heart failure symptoms. Surprisingly, no angina. Of note, the patient is poorly historian. We cannot depend much on her history. REVIEW OF SYSTEMS: GENERAL: No fever. No chills. No febrile illness or symptoms to suggest viral infection prior to this illness. No weight loss. No weight gain. HEENT: Congestion. No vision problem. No hearing problem. PULMONARY AND CARDIAC: As per above. No pleuritic chest pain. No pericarditic chest pain. GI: Bloating, indigestion, constipation, occasional nausea. No vomiting. : Stress incontinence. No hematuria. No dysuria. MUSCULOSKELETAL: Nonspecific back aches. NEUROLOGY: No seizure activity. No headache. No dizzy spells. HEMATOLOGY: No easy bruising or bleeding. ENDOCRINE: No history of diabetes mellitus. The patient is intolerance to hot weather at all, "I feel hot most of the time." SKIN: No skin lesion. PAST MEDICAL HISTORY: Rhodes teeth surgery. No other illnesses reported. ALLERGIES: NONE. HOME MEDICATION: Aspirin 81 mg a day. SOCIAL HISTORY: She is divorcee. She is nonsmoker and non-alcohol drinker. 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 FAMILY HISTORY: Father in his 70s after a complication of burn. Mother at age 83 with Alzheimer's, but she had colon cancer. No brother. One sister at age 50 with liver cirrhosis. Two sons; one son special need, another son already had several PCI and he is diabetic, he is in his 50. PHYSICAL EXAMINATION: VITAL SIGNS: Height of 5 feet 1 inch, weight of 167 pounds, blood pressure 140/90, heart rate of 90, and respiratory rate of 20. HEENT: Pupils are equal and reactive. NECK: No elevation of jugular venous pulsation. CHEST: Decreased lung entry with few crackles. HEART: PMI 5th left intercostal space. First and second heart sounds. ABDOMEN: Soft with no organomegaly. No abdominal bruit. EXTREMITIES: No cyanosis. No clubbing. No edema. Good distal pulses. NEUROLOGIC: Awake, alert, oriented, nonfocal. LABORATORY DATA: Sodium of 141, potassium 3.6, BUN of 19, creatinine of 0.87, and glucose of 109. White blood cell count of 10.5, hemoglobin of 12.9, and hematocrit 39%. TSH of 1.6. EKG showing tachycardia, sinus rhythm with left bundle branch block. Chest x-ray by report showing congestion and pulmonary edema and cardiomegaly. IMPRESSION AND PLAN: 1. Progressive congestive heart failure. 2. Left bundle branch block. PLAN: The patient will be admitted. Orders are written. We will check an echocardiogram. We will check BMP. We will check serial cardiac enzymes. The patient will have DVT prophylaxis. We will stop her IV, was started on diuretics, small dose of REJI inhibitor and beta-berenice. We will check lipid profile. Differential diagnosis are discussed and explained. Questions are answered. The patient's son at the bedside also. MD HUSSAIN Raines/MARYJO /[id number]
[2019-02-18 20:00] VITALS: BP 131/64
[2019-02-19] VITALS (8 sets, daily range): BP systolic 109–162; BP diastolic 55–74
[2019-02-19 05:36] LABS: BASOPHILS # (AUTO) 0.1 (0.0-0.1); BASOPHILS % 0.8 % (0.0-1.0); EOSINOPHILS # (AUTO) 0.5 (0.0-0.4); EOSINOPHILS % 5.9 % (0.0-6.0); HEMATOCRIT 37.3 % (34.2-44.1); HEMOGLOBIN 11.8 g/dL (12.0-16.0); LYMPHOCYTES # (AUTO) 1.3 (1.0-3.2); LYMPHOCYTES % 14.7 % (18.0-39.1); MEAN CORPUSCULAR HEMOGLOBIN 28.4 pg (28-32); MEAN CORPUSCULAR HGB CONC 31.6 g/dL (31-35); MEAN CORPUSCULAR VOLUME 89.9 fL (81-99); MONOCYTES # (AUTO) 0.7 (0.2-0.8); MONOCYTES % 7.3 % (4.4-11.3); NEUTROPHILS # (AUTO) 6.5 (2.1-6.9); NEUTROPHILS % 70.9 % (38.7-80.0); PLATELET COUNT 296 x10e3/uL (140-360); RED BLOOD COUNT 4.15 x10e6/uL (3.6-5.1); RED CELL DISTRIBUTION WIDTH 14.3 % (11.7-14.4)
[2019-02-19 05:54] LABS: ALANINE AMINOTRANSFERASE 100 IU/L (0-55); ALBUMIN 2.8 g/dL (3.5-5.0); ALBUMIN/GLOBULIN RATIO 0.8 (0.8-2.0); ALKALINE PHOSPHATASE 119 IU/L (40-150); ANION GAP 12.6 mmol/L (8-16); BLOOD UREA NITROGEN 22 mg/dL (7-26); BUN/CREATININE RATIO 28 (6-25); CALCIUM 8.5 mg/dL (8.4-10.2); CARBON DIOXIDE 24 mmol/L (22-29); CHLORIDE 110 mmol/L (98-107); CHOL/HDL RATIO 4.4 (3.0-3.6); CHOLESTEROL 172 MD/DL (0-199); EST GLOMERULAR FILTRATION RATE > 60 ML/MIN (60-); GLUCOSE 100 mg/dL (74-118); HDL CHOLESTEROL 39 MG/DL (40-60); LDL CHOLESTEROL 115 MG/DL (60-130); POTASSIUM 3.6 mmol/L (3.5-5.1); SODIUM 143 mmol/L (136-145); TRIGLYCERIDES 90 MG/DL (0-149)
[2019-02-19 06:19] LABS: THYROID STIMULATING HORMONE 1.731 uIU/mL (0.350-4.940)
[2019-02-19 06:29] LABS: CREATINE KINASE MB 2.2 ng/mL (0-5.0)
--- NOTE | 2019-02-19 07:00 | NUR ---
Walking rounds done. Patient resting in bed in NAD. Son at the bedside. Both instructed to call for assistance as needed and verbalized understanding. call strong within reach and bed in lowest position.
[2019-02-19] MEDS: FUROSEMIDE INJ 10 MG/ML 4 ML VIAL IV SCH ×2 (08:51→12:59)
[2019-02-19] MEDS: POTASSIUM CHLORIDE 20 MEQ TAB CR PO SCH (08:52)
[2019-02-19] MEDS: METOPROLOL TARTRATE 25 MG TAB PO SCH (08:52)
[2019-02-19] MEDS: LISINOPRIL 10 MG TAB PO SCH ×2 (08:52→17:34)
[2019-02-19] MEDS ORDERED: FUROSEMIDE 40 MG TAB PO SCH (09:00)
--- NOTE | 2019-02-19 14:07 | NUR ---
Nutrition Screen Note RD Recommendation for Physician: -Continue cardiac diet as ordered Plan of Care: RD following, monitoring for tolerance and adequacy, diet education Nutrition reason for involvement: Diagnosis CHF Primary Diagnose(s): 1. Progressive congestive heart failure. 2. Left bundle branch block. PMH: no H&P indicated Ht: 61in Wt: 167lb BMI: 31.6kg/m2 IBW: 105lb +/- 10% RD Assessment: (02/19) Chart reviewed. Labs and meds reviewed. 78yo F, who was admitted for CHF. Visited pt in the room. Pt reported eating well prior and during hospital stay. Pt ate 75% of lunch today. No recent weight loss noted. Pt denied any nausea or vomiting. LBM 02/19. Pt denied any chewing or swallowing difficulty. RD provided information and handouts on heart healthy diet. All questions have been answered. Current Diet: cardiac diet Malnutrition Evaluation (02/19/2019) The patient does not meet criteria for a specified degree of malnutrition at this time. Will re-evaluate at follow-up as appropriate. Diet Education Needs Assessment: Diet education indicated, pt was agreeable. Learner(s): pt Time spent: 20minutes Barriers: No barriers identified. Cultural/Language Modifications: No cultural/language modifications noted. Pt speaks Bulgarian. Readiness: Acceptance Method: Handouts, explanation Topics: Heart failure nutrition therapy Understanding/Compliance: Expect fair understanding/compliance from pt. Will benefit from reinforcement. All questions have been answered. Nutrition Care Level: low Signed: Malgorzata Mckinnon, MS, RD, LD
[2019-02-19] MEDS ORDERED: PERFLUTREN LIPID MICROSPHERES 2 ML VIAL IV ONE (14:55)
--- NOTE | 2019-02-19 15:55 | Diagnostic Imaging Report ---
EXAM: CT Chest WITHOUT intravenous contrast 02/19/2019 8:39 AM INDICATION: Shortness of breath COMPARISON: Chest radiograph of 02/18/2019 TECHNIQUE: Chest was scanned utilizing a multidetector helical scanner from the lung apex through the level of the adrenal glands without administration of IV contrast. Coronal and sagittal reformations were obtained. Routine protocol was performed. IV CONTRAST: None. RADIATION DOSE: Total DLP: 489.60 mGy*cm. Dose modulation, iterative reconstruction, and/or weight based adjustment of the mA/kV was utilized to reduce the radiation dose to as low as reasonably achievable. COMPLICATIONS: None FINDINGS: LINES/ TUBES: None. LUNGS AND AIRWAYS: The central airways are patent. No focal consolidation. There is bibasilar subsegmental atelectasis. Mild dependent bibasilar groundglass opacities and smooth interlobular septal thickening. PLEURA: Small bilateral pleural effusions. No pneumothorax. HEART AND MEDIASTINUM: There is a 1.6 cm predominantly cystic nodule in the left lobe of the thyroid gland. No supraclavicular lymphadenopathy. There are several prominent subcentimeter pretracheal mediastinal lymph nodes that do not meet size criteria for lymphadenopathy. No hilar lymphadenopathy. No axillary, subpectoral, or internal mammary lymphadenopathy. Multichamber cardiomegaly. There are atherosclerotic calcifications of the coronary arteries and thoracic aorta. Trace pericardial effusion. UPPER ABDOMEN: Limited noncontrast enhanced images of the upper abdomen were obtained, showing a 2.0 cm simple cyst in the left lobe of the liver. No abnormality in the partially visualized spleen, pancreas, adrenals, or superior aspect of left kidney. BONES: Mild degenerative changes of the visualized spine. No suspicious lytic or blastic lesions. SOFT TISSUES: Unremarkable. IMPRESSION: Cardiomegaly and mild interstitial pulmonary edema with small bilateral pleural effusions and bibasilar subsegmental atelectasis. Left thyroid lobe 1.6cm or predominantly cystic nodule. Recommend follow-up thyroid ultrasound for further evaluation. Signed by: Faizan Yeboah MD on 02/19/2019 3:51 PM
[2019-02-19] MEDS: CARVEDILOL 12.5 MG TAB PO SCH ×2 (17:00→17:25)
[2019-02-19] MEDS: ENOXAPARIN SOD INJ 40 MG/0.4 ML SYR SC SCH (17:34)
--- NOTE | 2019-02-19 19:01 | NUR ---
Report given and rounds done.
--- NOTE | 2019-02-19 19:05 | NUR ---
Report received and bedside report walking rounds complete. Pt resting in bed and in no apparent distress. All safety measures ensured and pt son to stay overnight. Pt encouraged to use call strong for assistance.
[2019-02-20] VITALS (7 sets, daily range): BP systolic 119–144; BP diastolic 57–83
--- NOTE | 2019-02-20 05:29 | History and Physical ---
PRIMARY CARE PHYSICIAN: Guillermina Doshi M.D. INCIDENT RESPONSE LEAD: Nabil Orellana M.D. CHIEF COMPLAINT: Progressive shortness of breath. HISTORY OF PRESENT ILLNESS: The patient is a 78-year-old female, does not see any physician until recently she saw Dr. Doshi for the first time, which subsequently was brought into the hospital. Apparently, the patient for the past 6 months or so having progressive increasing shortness of breath, first on exertion and then subsequently at rest. The patient has bilateral lower effusion. She is shortness of breath on oxygen at this time. Workup for congestive heart failure. EKG in the emergency room showed left bundle-branch block. The patient is currently undergoing cardiac workup. PAST MEDICAL HISTORY: Nondiagnostic due to the patient had not been seeing family physician. PAST SURGICAL HISTORY: None. SOCIAL HISTORY: The patient does not smoke or use alcohol. She is a divorcee. ALLERGIES: NONE. HOME MEDICATIONS: None. PHYSICAL EXAMINATION: VITAL SIGNS: Temperature is 98, blood pressure 162/70, pulse rate 75, and respirations 22. GENERAL: The patient is on oxygen. She does have shortness of breath on conversation. HEENT: Normocephalic, atraumatic. Pupils reactive. Anicteric. NECK: Supple grossly. Possible JVD. PULMONARY: Diminished breath sounds bilaterally with rales at the bases. CARDIOVASCULAR: S1, S2, regular rate and rhythm. ABDOMEN: Soft. EXTREMITIES: 1+ edema. NEUROLOGIC: No focal deficit. Moving all extremities. LABORATORY DATA: Sodium 143, potassium 3.6, chloride 110, bicarb 24, BUN 22, creatinine 0.8, and glucose is 100. AST is 84, ALT is 100. BNP is 581. TSH is 1.7. WBCs 10.5, hemoglobin 12.9, hematocrit 39.6, and platelets are 333. Urinalysis unremarkable. Coagulation, D-dimer 0.85. Chest x-ray, bilateral pleural effusion. IMPRESSION: 1. Acute congestive heart failure, echocardiogram is pending. 2. Bilateral pleural effusion. 3. Left bundle-branch block. PLAN: The patient will be admitted. Diuresis. CT of chest without contrast. Echocardiogram. Cardiac workup for possible ischemic coronary artery disease. MD EUGENIO Joiner/MARYJO /[id number]
[2019-02-20 05:48] LABS: ANION GAP 10.5 mmol/L (8-16); BLOOD UREA NITROGEN 22 mg/dL (7-26); BUN/CREATININE RATIO 32 (6-25); CALCIUM 8.3 mg/dL (8.4-10.2); CARBON DIOXIDE 28 mmol/L (22-29); CHLORIDE 108 mmol/L (98-107); CREATININE, SERUM 0.69 mg/dL (0.57-1.11); EST GLOMERULAR FILTRATION RATE > 60 ML/MIN (60-); GLUCOSE 96 mg/dL (74-118); POTASSIUM 3.5 mmol/L (3.5-5.1); SODIUM 143 mmol/L (136-145)
--- NOTE | 2019-02-20 07:00 | NUR ---
BEDSIDE SHIFT REPORT RECEIVED FROM THE HATCHERY HELPER RN. PT DENIES NEEDS AT THIS TIME.
[2019-02-20] MEDS: CARVEDILOL 12.5 MG TAB PO SCH ×2 (08:20→16:22)
[2019-02-20] MEDS: LISINOPRIL 10 MG TAB PO SCH ×2 (08:20→16:22)
[2019-02-20] MEDS: POTASSIUM CHLORIDE 20 MEQ TAB CR PO SCH (08:20)
[2019-02-20] MEDS: FUROSEMIDE INJ 10 MG/ML 4 ML VIAL IV SCH ×2 (08:20→12:21)
[2019-02-20] MEDS: ENOXAPARIN SOD INJ 40 MG/0.4 ML SYR SC SCH (16:22)
[2019-02-20] MEDS ORDERED: COZAAR25 MG PO (17:04)
[2019-02-20] MEDS ORDERED: FUROSEMIDE40 MG PO (17:04)
[2019-02-20] MEDS ORDERED: COREG12.5 MG PO (17:04)
[2019-02-20] MEDS ORDERED: ASPIR 8181 MG PO (17:05)
--- NOTE | 2019-02-20 17:30 | NUR ---
PT OFF UNIT FOR PROCEDURE IN SAFE CONDITION.
--- NOTE | 2019-02-20 17:57 | NUR ---
PT BACK TO UNIT AFTER PROCEDURE. PT DENIES NEEDS AT THIS TIME.
--- NOTE | 2019-02-20 19:00 | NUR ---
BEDSIDE SHIFT REPORT GIVEN TO THE SCARRER RN. PT DENIED FURTHER NEEDS.
--- NOTE | 2019-02-20 19:05 | NUR ---
Bedside report and walking rounds complete. Pt resting in bed and in no apparent distress. All safety measures ensured and pt call strong near. Pt encouraged to use call strong for assistance.
--- NOTE | 2019-02-20 20:08 | NUR ---
RECEIVED PATIENT TO UNIT, AAOX4, STABLE CONDITION. ORIENTED PATIENT TO SELF, NEW ROOM, AND UPDATED ON PLAN OF CARE. AT THIS TIME NO NEEDS VOICED. BED LOCKED AND IN LOWEST POSITION, CALL LIGHT WITHIN EASY REACH. WILL CONTINUE TO MONITOR PATIENT.
--- NOTE | 2019-02-20 20:13 | NUR ---
Pt transferred to room 107.
--- NOTE | 2019-02-20 22:24 | NUR ---
spoke with md phillips, okay to leave patient with no iv access.
[2019-02-21] VITALS: BP 117/57
[2019-02-21 04:00] VITALS: BP 115/57
[2019-02-21 07:56] VITALS: BP 124/64
--- NOTE | 2019-02-21 08:11 | Diagnostic Imaging Report ---
Thyroid ultrasound. History: Thyroid nodule. Comparison: CT chest 02/20/2019.. Discussion: Transverse and longitudinal images of the thyroid were obtained demonstrating mildly heterogeneous echogenicity of the thyroid. The sizes of the lobes are normal with the right thyroid lobe measuring 2.4 x 1.4 x 1.4 cm and the left measuring 4.5 x 1.8 x 1.5 cm. The isthmus is measures 4 mm in thickness. 2 oval hypoechoic lesions are seen in the left lobe, one superiorly measuring 2.6 x 0.6 x 0.7 cm and one inferiorly measuring 0.4 x 0.4 x 0.5 cm. IMPRESSION: 2 subcentimeter nonspecific left thyroid nodules. Signed by: Og Thomas on 02/21/2019 8:08 AM
[2019-02-21] MEDS: POTASSIUM CHLORIDE 20 MEQ TAB CR PO SCH (08:21)
[2019-02-21] MEDS: CARVEDILOL 12.5 MG TAB PO SCH ×2 (08:21→17:22)
[2019-02-21 08:26] VITALS: BP 124/64
--- NOTE | 2019-02-21 08:27 | NUR ---
Patient alert and responsive, no resp distress but c/o some SOB, on O2 2L NC, call light within reach, LS CTAB besides rhonchi to LLL, will monitor.
[2019-02-21] MEDS ORDERED: FUROSEMIDE 40 MG TAB PO SCH (09:00)
[2019-02-21] MEDS ORDERED: LOSARTAN POTASSIUM 25 MG TAB PO SCH (09:00)
[2019-02-21 11:51] VITALS: BP 133/63
--- NOTE | 2019-02-21 16:14 | NUR ---
IMM SIGNED BY PT AND PLACED IN CHART COPY TO PT IN CARE TRANSITIONS FOLDER
[2019-02-21 16:21] VITALS: BP 120/84
--- NOTE | 2019-02-21 16:34 | NUR ---
PT TO BE DISCHARGED TODAY TO FOLLOW UP OUTPATIENT FOR LYMPH NODULES.
--- NOTE | 2019-02-21 16:42 | Discharge Summary ---
PRIMARY CARE PHYSICIAN: Guillermina Doshi M.D. CONSULTING DOCTOR: Nabil Orellana M.D. FINAL DIAGNOSES: 1. Acute systolic dysfunction, congestive heart failure with ejection fraction of less than 30%. 2. Left bundle branch block, most likely chronic. 3. Hypertension. 4. Incidental finding of two subcentimeter nonspecific left thyroid nodules. HISTORY OF PRESENT ILLNESS: The patient is a 78-year-old female, did not see any doctor previously, came in with congestive heart failure exacerbation with pulmonary edema. The patient gets furosemide. She is doing much better. The patient is stable. She will go home today. She will have her ischemic coronary disease workup as an outpatient per Dr. Nabil Orellana. Discharged home with medications, aspirin 81 mg daily, Coreg 6.25 mg b.i.d., Lasix 40 mg daily, losartan 25 mg daily, and potassium 10 mEq daily. The patient is stable, discharged home. Follow up with Dr. Doshi, her new PCP in approximately [address] Nabil Orellana in approximately 1 week as well. The patient is stable, discharged home today. Follow up as instructed. MD EUGENIO Joiner/MARYJO /[id number]
[2019-02-21] MEDS: ENOXAPARIN SOD INJ 40 MG/0.4 ML SYR SC SCH (17:22)
--- NOTE | 2019-02-21 18:42 | NUR ---
Patient cleared for discharge by cash register repairer, discharged by Dr. Ty, provided patient with discharge documentation and prescriptions provided, referrals for f/u appts provided and educated on importance of taking meds and for f/.u appt.
[2019-04-04] MEDS ORDERED: LOSARTAN POTASS25 MG PO (12:32)
[2019-04-04] MEDS ORDERED: POTASSIUM CHLO10 ME1 PO (12:32)
[2019-04-04] MEDS ORDERED: PRESERVISION T1 EACH PO (12:33)
== END 2019-02-21 18:32 | disposition home or self-care (01) | DRG 293 ==
LOC: ER 14:28 → ERHOLD 16:21 → IMCU 18:13 → OBSVTOIN 02-19 08:41 → MED/SURG 02-20 20:08
PROVIDERS: ADMIT Internal Medicine Cardiovascular Disease; ATTEND Internal Medicine Cardiovascular Disease
DX: I11.0 Hypertensive heart disease with heart failure (principal); I50.43 Acute on chronic combined systolic (congestive) and diastolic (congestive) heart failure; I44.7 Left bundle-branch block, unspecified; E04.1 Nontoxic single thyroid nodule
CPT/HCPCS: 36415; 71045; 71250; 76536; 80048; 80053; 80061; 81001; 82270; 82550; 82553; 83880; 84443; 84484; 85025; 85379; 93005; 93306; 99284; G0378; J1650; J1940; J7030

== ENCOUNTER → 2019-04-09 | Day surgery (SDC) | payer MEDICARE ==
--- NOTE | 2019-04-04 13:51 | Diagnostic Imaging Report ---
Chest, 2 views, 04/04/2019. History: Preop, heart catheterization. Comparison: 02/18/2019. Findings: The cardiac silhouette is mildly enlarged but the pulmonary vasculature is within normal limits. There is no consolidation or pleural effusion. Linear opacity is present in the left midlung. Degenerative changes are noted in the thoracic spine. There are no acute osseous or soft tissue abnormalities. Impression: Cardiomegaly without acute pulmonary abnormality. Linear scarring is noted in the left lung. Signed by: Og Thomas on 04/04/2019 1:48 PM
--- NOTE | 2019-04-04 22:40 | Pre Op History & Physical ---
HISTORY: A 78-year-old lady, poorly compliant, hospitalized at [facility] on February 19, 2019, with acute CHF. Echocardiogram showed the ejection fraction in the 30s. The patient came to our office. She does have class III to early class IV heart failure like symptoms. Her nuclear stress test was very abnormal, which showed also severe left ventricular dysfunction. Her symptoms are class III to early class IV. She is very suspicious of everything. The patient wants to proceed with cardiac catheterization and possible intervention. She talked to her son prior to her scheduling. She knows she is very high risk with possible advanced ischemic cardiomyopathy. CURRENT MEDICATIONS: Aspirin 81 mg a day, Coreg 6.25 mg twice a day, losartan 25 mg daily, Lasix 40 mg a day, potassium chloride 10 mEq a day. ALLERGIES: NONE. PAST MEDICAL HISTORY: 1. Congestive heart failure. 2. Left bundle branch blocks. 3. Hypertension. SOCIAL HISTORY: She is a non-smoker. She is non-alcohol drinker. She is divorcee. REVIEW OF SYSTEMS: GENERAL: Failure to thrive, poor exercise tolerance. CARDIA AND PULMONARY: Class III to early class IV heart failure symptoms. GI: No hematemesis. No melena. : Increased frequency of urination. EXTREMITIES: Lower extremity marked edema of the lower extremities. NEUROLOGIC: Normal gait. No localized deficits. PHYSICAL EXAMINATION: VITAL SIGNS: Height of 5 feet, weight of 150 pounds, blood pressure 120/70, heart rate of 70, respiratory rate of 18. HEENT: Pupils are reactive. NECK: No elevation of jugular venous pulsation. CHEST: Levoscoliosis with decreased air entry in both lungs. HEART: PMI 5th left intercostal space. Normal first and second heart sounds. ABDOMEN: Soft with good bowel sounds. EXTREMITIES: Bilateral trace edema. NEUROLOGIC: Nonfocal. IMPRESSION AND PLAN: 1. Congestive heart failure. 2. Very abnormal nuclear stress test. 3. Left bundle branch block. 4. Hypertension. 5. Poor compliance. 6. Debility. The patient did have very abnormal stress test and definitely she does have congestive heart failure. Plan for cardiac catheterization with possible intervention. Very high risk. Explained to the patient if no coronary artery disease is found or no revascularization since she does have left bundle branch block, she would benefit from biventricular device. All this is discussed and explained. MD ROSY Raines /[id number]
[2019-04-08 09:42] LABS: BASOPHILS # (AUTO) 0.1 (0.0-0.1); BASOPHILS % 0.5 % (0.0-1.0); EOSINOPHILS # (AUTO) 0.4 (0.0-0.4); EOSINOPHILS % 4.6 % (0.0-6.0); HEMATOCRIT 42.9 % (34.2-44.1); HEMOGLOBIN 14.1 g/dL (12.0-16.0); LYMPHOCYTES # (AUTO) 1.3 (1.0-3.2); LYMPHOCYTES % 13.7 % (18.0-39.1); MEAN CORPUSCULAR HEMOGLOBIN 28.8 pg (28-32); MEAN CORPUSCULAR HGB CONC 32.9 g/dL (31-35); MEAN CORPUSCULAR VOLUME 87.7 fL (81-99); MONOCYTES # (AUTO) 0.6 (0.2-0.8); MONOCYTES % 6.9 % (4.4-11.3); NEUTROPHILS # (AUTO) 6.9 (2.1-6.9); NEUTROPHILS % 74.1 % (38.7-80.0); PLATELET COUNT 251 x10e3/uL (140-360); RED BLOOD COUNT 4.89 x10e6/uL (3.6-5.1); RED CELL DISTRIBUTION WIDTH 14.6 % (11.7-14.4)
[2019-04-08 09:55] LABS: INR 0.92; PROTHROMBIN TIME 12.9 seconds (11.9-14.5)
[2019-04-08 09:56] LABS: PARTIAL THROMBOPLASTIN TIME 29.4 seconds (23.8-35.5)
[2019-04-08 10:05] LABS: ALANINE AMINOTRANSFERASE 12 IU/L (0-55); ALBUMIN 3.5 g/dL (3.5-5.0); ALBUMIN/GLOBULIN RATIO 0.9 (0.8-2.0); ALKALINE PHOSPHATASE 112 IU/L (40-150); ANION GAP 11.9 mmol/L (8-16); BLOOD UREA NITROGEN 27 mg/dL (7-26); BUN/CREATININE RATIO 33 (6-25); CALCIUM 9.4 mg/dL (8.4-10.2); CARBON DIOXIDE 28 mmol/L (22-29); CHLORIDE 107 mmol/L (98-107); CHOL/HDL RATIO 5.3 (3.0-3.6); CREATININE, SERUM 0.83 mg/dL (0.57-1.11); EST GLOMERULAR FILTRATION RATE > 60 ML/MIN (60-); GLUCOSE 118 mg/dL (74-118); POTASSIUM 3.9 mmol/L (3.5-5.1); SODIUM 143 mmol/L (136-145)
[2019-04-09] VITALS (10 sets, daily range): BP systolic 138–166; BP diastolic 62–88
[~2019-04-09] VITALS: Ht 154.9 cm; Wt 70.3 kg
[~2019-04-09] MED LIST: ASPIR 8181 MG PO; COREG12.5 MG PO; COZAAR25 MG PO; FENTANYL CITRATE/PF 100MCG/2 ML INJ ONE; FUROSEMIDE40 MG PO; HEPARIN SOD (PORCINE) 1000 UNIT/ML 30ML ONE; HEPARIN SOD/SOD CHLORIDE 2,000 ML ONE; IOPAMIDOL 370 MG/ML 200 ML INFUS..BTL INJ ONE; LIDOCAINE HCL 2% LOCAL 20 ML VIAL ONE; LOSARTAN POTASS25 MG PO; MIDAZOLAM HCL 2 MG/2 ML VIAL ONE; NITROGLYCERIN/D5W 200 MCG/ML 250 ML ONE; POTASSIUM CHLO10 ME1 PO; PRESERVISION T1 EACH PO; SODIUM CHLORIDE 0.9% 1000ML 1,000 ML ONE
--- OUTSIDE RECORDS SUMMARY | 2019-04-09 06:22 | XMS REPORT | Continuity of Care Document ---
Author Author [employer] Address Unknown Phone Unavailable Care Team Providers Care X Ray Consultant Name Role Phone [employer] Unavailable Unavailable Problems Problem Status Onset Date Classification Date Reported Comments Source Discharge Diagnosis: Fall 04/09/2017 04/12/2017 [facility] Discharge Diagnosis: Finger fracture 04/09/2017 04/12/2017 [facility] SDH Active 04/09/2017 [facility] FALL W/ NOSE AND HAND INJURY Active [facility] Medications Medication Details Route Status Patient [...] /1 ml ) No Longer Active 04/10/2017 [facility] Keppra 1,000 mg, Route: IV, ONCE, Dosing Weight 72.727, kg, Start date: 04/09/17 19:18:00 CDT, Stop date: 04/09/17 19:18:00 CDTNotes: Same as Keppra Mix with 100 mL NS, LR or D5W MEDICATION WASTE Product Size: 500 mg Product Wasted: ___ mg Inactive 04/10/2017 [facility] Saline Flush 0.9% 10 mL, Route: IVP, Drug Form: INJ, Dosing Weight 72.727, kg, PRN, PRN Line Flush, Start date: 04/09/17 19:16:00 CDT, Duration: 30 day, Stop date: 05/09/17 19:15:00 CDTNotes: (Same as: BD Posiflush) No Longer Active 04/10/2017 [facility] Adacel (Tdap) 0.5 ml, Route: IM, Drug Form: SUSP, Dosing Weight 72.727, kg, ONCE, Start date: 04/09/17 16:45:00 CDT, Stop date: 04/09/17 16:45:00 CDT Inactive 04/09/2017 [facility] 0.5 ML Bordetella pertussis filamentous hemagglutinin [...] Use. Same as: Adacel (Tdap) Inactive 04/09/2017 [facility] Allergies, Adverse Reactions, Alerts No Known Medication Allergies Immunizations No Data Provided for This Section Results Order Name Results Value Reference Range Date Interpretation Comments Source DRUG SCREEN U Phencyc Scr Negative *NA* (04/09/17 8:19 PM) Negative 04/10/2017 [facility] DRUG SCREEN U Cannab Scr Negative *NA* (04/09/17 8:19 PM) Negative 04/10/2017 [facility] DRUG SCREEN U Opiate Scr Negative *NA* (04/09/17 8:19 PM) Negative 04/10/2017 [facility] DRUG SCREEN UDS Note See Note *NA* (04/09/17 8:19 PM) 04/10/2017 [facility] DRUG SCREEN U Benzodia Scr Negative *NA* (04/09/17 8:19 PM) Negative 04/10/2017 [facility] DRUG SCREEN U Cocaine Scr Negative *NA* (04/09/17 8:19 PM) Negative 04/10/2017 [facility] DRUG SCREEN U Amph Scr Negative *NA* (04/09/17 8:19 PM) Negative 04/10/2017 [facility] DRUG SCREEN U Sanjuana Scr Negative *NA* (04/09/17 8:19 PM) Negative 04/10/2017 [facility] URINE AND STOOL UA WBC 0-2 /HPF None Seen /HPF 04/10/2017 [facility] URINE AND STOOL UA Sq Epi Rare /LPF Few /LPF 04/10/2017 [facility] URINE AND STOOL UA RBC None Seen (04/09/17 8:19 PM) 0 - 2 04/10/2017 [facility] URINE AND STOOL UA Leuk Est Negative (04/09/17 8:19 PM) Negative 04/10/2017 [facility] URINE AND STOOL UA Ketones Negative mg/dL Negative mg/dL 04/10/2017 [facility] URINE AND STOOL UA Nitrite Negative (04/09/17 8:19 PM) Negative 04/10/2017 [facility] URINE AND STOOL UA Spec Grav 1.010 <=1.030 04/10/2017 [facility] URINE AND STOOL UA pH 7.5 5.0 - 8.0 04/10/2017 [facility] URINE AND STOOL UA Protein Negative mg/dL Negative mg/dL 04/10/2017 [facility] URINE AND STOOL UA Glucose Negative mg/dL Negative mg/dL 04/10/2017 [facility] URINE AND STOOL UA Bili Negative *NA* (04/09/17 8:19 PM) Negative 04/10/2017 [facility] URINE AND STOOL UA Blood Negative (04/09/17 8:19 PM) Negative 04/10/2017 [facility] URINE AND STOOL UA Urobilinogen 0.2 0.1 - 1.0 04/10/2017 [facility] URINE AND STOOL UA Turbidity Clear (04/09/17 8:19 PM) Clear 04/10/2017 [facility] URINE AND STOOL UA Color Yellow *NA* (04/09/17 8:19 PM) Yellow 04/10/2017 [facility] CARDIAC ENZYMES Troponin-I 0.04 0.00 - 0.40 04/10/2017 [facility] CARDIAC ENZYMES Troponin-T <0.010 0.000 - 0.100 04/10/2017 [facility] CARDIAC ENZYMES Total CK 232 12 - 191 04/10/2017 [facility] CARDIAC ENZYMES CK MB 2.4 0.5 - 3.6 04/10/2017 [facility] CARDIAC ENZYMES CK MB Index 1.0 0.0 - 2.5 04/10/2017 [facility] ELECTROLYTES Chloride Lvl 107 95 - 109 04/10/2017 [facility] ELECTROLYTES AGAP 14.9 10.0 - 20.0 04/10/2017 [facility] ELECTROLYTES Calcium Lvl 9.3 8.5 - 10.5 04/10/2017 [facility] ELECTROLYTES CO2 27 24 - 32 04/10/2017 [facility] ELECTROLYTES Potassium Lvl 4.9 3.5 - 5.1 04/10/2017 Result Comment: Specimen Moderately Hemolyzed. [facility] ELECTROLYTES Sodium Lvl 144 135 - 145 04/10/2017 [facility] ELECTROLYTES eGFR 90 04/10/2017 Result Comment: The [...] should be multiplied by the estimated BMI. [facility] ELECTROLYTES BUN 12 7 - 22 04/10/2017 [facility] ELECTROLYTES Glucose Lvl 106 70 - 99 04/10/2017 [facility] ELECTROLYTES Creatinine Lvl 0.59 0.50 - 1.40 04/10/2017 [facility] BLOOD BANK RESULTS ABO/Rh O POS 04/10/2017 [facility] BLOOD BANK RESULTS Antibody Scrn Negative (04/09/17 7:29 PM) 04/10/2017 [facility] CHEM PANEL Lactic Acid Lvl 1.0 0.5 - 2.2 04/10/2017 [facility] HEMATOLOGY Segs-Bands # 12.3 1.5 - 8.1 04/10/2017 [facility] HEMATOLOGY Eosinophils 0.5 0.0 - 4.0 04/10/2017 [facility] HEMATOLOGY Eosinophils # 0.1 0.0 - 0.5 04/10/2017 [facility] HEMATOLOGY Monocytes # 0.6 0.0 - 0.8 04/10/2017 [facility] HEMATOLOGY Lymphocytes # 1.3 1.0 - 5.5 04/10/2017 [facility] HEMATOLOGY Basophils 0.1 0.0 - 1.0 04/10/2017 [facility] HEMATOLOGY Monocytes 4.4 2.0 - 12.0 04/10/2017 [facility] HEMATOLOGY Lymphocytes 8.8 20.0 - 40.0 04/10/2017 [facility] HEMATOLOGY Segs 86.2 45.0 - 75.0 04/10/2017 [facility] HEMATOLOGY MPV 9.7 7.4 - 10.4 04/10/2017 [facility] HEMATOLOGY RDW 15.6 11.5 - 14.5 04/10/2017 [facility] HEMATOLOGY Platelet 266 133 - 450 04/10/2017 [facility] HEMATOLOGY MCHC 32.7 32.0 - 36.0 04/10/2017 [facility] HEMATOLOGY MCH 28.6 27.0 - 31.0 04/10/2017 [facility] HEMATOLOGY Hct 44.2 36.0 - 48.0 04/10/2017 [facility] HEMATOLOGY MCV 87.5 80.0 - 98.0 04/10/2017 [facility] HEMATOLOGY Hgb 14.5 12.0 - 16.0 04/10/2017 [facility] HEMATOLOGY RBC 5.05 4.20 - 5.40 04/10/2017 [facility] HEMATOLOGY WBC 14.3 3.7 - 10.4 04/10/2017 [facility] HEMATOLOGY PT 12.7 12.0 - 14.7 04/10/2017 [facility] HEMATOLOGY INR 0.93 0.85 - 1.17 04/10/2017 [facility] HEMATOLOGY PTT 27.8 22.9 - 35.8 04/10/2017 [facility] HEMATOLOGY K-time Rapid 1.8 0.6 - 2.3 04/10/2017 [facility] HEMATOLOGY Angle Rapid 76 64 - 80 04/10/2017 [facility] HEMATOLOGY ACT (TEG) Rapid 105 86 - 118 04/10/2017 [facility] HEMATOLOGY R-time Rapid 0.6 0.4 - 0.7 04/10/2017 [facility] HEMATOLOGY Split Point Rapid 0.5 04/10/2017 [facility] HEMATOLOGY G-value Rapid 8.7 5.0 - 11.6 04/10/2017 [facility] HEMATOLOGY Max Amplitude Rapid 63 52 - 71 04/10/2017 [facility] HEMATOLOGY Estimated % Lysis Rapid 0.0 0.0 - 7.5 04/10/2017 [facility] TOXICOLOGY Etoh (%) <0.003 % 04/10/2017 [facility] TOXICOLOGY Ethanol Lvl <3.0 mg/dL 04/10/2017 [facility] Pathology Reports No Data Provided for This [...] fifth phalanx base fracture after splinting. 04/09/2017 [facility] Brain wo contrast CT EXAM: CT HEAD [...] acute new intracranial hemorrhage is identified. 04/09/2017 [facility] Chest 1view DX EXAM: XR CHEST 1 [...] Cardiomegaly with no acute cardiopulmonary abnormality. 04/09/2017 [facility] Hand 3 views DX Right hand 3 views DX, 04/09/2017 3:48 PM CDT HISTORY: Pain, Trauma - FALL COMPARISON: None FINDINGS: Acute comminuted intra-articular fracture involving the base of the 5th proximal phalanx. Associated dorsal angulation. No additional fractures. Associated soft tissue swelling. IMPRESSION: Acute comminuted intra-articular fracture of the 5th proximal phalanx. SL: [id number] 04/09/2017 [facility] Knee 3 views DX Left knee 3 views DX, 04/09/2017 3:48 PM CDT HISTORY: Pain, Trauma - FALL COMPARISON: None FINDINGS: No evidence for acute fracture. Joint space are maintained. Soft tissues unremarkable. Negative for joint effusion. IMPRESSION: No acute osseous abnormality SL: [id number] 04/09/2017 [facility] Facial bone wo contrast CT CT [...] acute facial fracture identified. SL: YUKI 04/09/2017 [facility] Brain wo contrast CT CT head [...] 4:35 PM on 04/09/2017. SL: YUKI 04/09/2017 [facility] Consultation Notes No Data Provided for This Section Discharge Summaries No Data Provided for This Section History and Physicals No Data Provided for This Section Vital Signs Vital Sign Value Date Comments Source Respitory Rate 19 04/10/2017 [facility] Temperature Oral (F) 98.4 F 04/10/2017 [facility] Heart Rate 87 04/10/2017 [facility] Systolic (mm Hg) 153 04/10/2017 [facility] Diastolic (mm Hg) 78 04/10/2017 [facility] Temperature Oral (F) 98.6 F 04/10/2017 [facility] Respitory Rate 17 04/10/2017 [facility] Systolic (mm Hg) 156 04/10/2017 [facility] Diastolic (mm Hg) 82 04/10/2017 [facility] Heart Rate 95 04/10/2017 [facility] Systolic (mm Hg) 144 04/10/2017 [facility] Diastolic (mm Hg) 89 04/10/2017 [facility] Respitory Rate 20 04/10/2017 [facility] Heart Rate 94 04/10/2017 [facility] Weight 72.727 04/10/2017 [facility] BMI Calculated 26.68 04/10/2017 [facility] Height 165.1 cm 04/10/2017 [facility] Temperature Oral (F) 98.0 F 04/10/2017 [facility] Heart Rate 95 04/09/2017 [facility] Respitory Rate 18 04/09/2017 [facility] Systolic (mm Hg) 194 04/09/2017 [facility] Diastolic (mm Hg) 79 04/09/2017 [facility] Systolic (mm Hg) 198 04/09/2017 [facility] Diastolic (mm Hg) 91 04/09/2017 [facility] Heart Rate 96 04/09/2017 [facility] Respitory Rate 18 04/09/2017 [facility] Systolic (mm Hg) 194 04/09/2017 [facility] Diastolic (mm Hg) 104 04/09/2017 [facility] Respitory Rate 18 04/09/2017 [facility] Heart Rate 97 04/09/2017 [facility] Weight 72.727 04/09/2017 [facility] BMI Calculated 26.68 04/09/2017 [facility] Temperature Oral (F) 98.0 F 04/09/2017 [facility] Height 165.1 cm 04/09/2017 [facility] Encounters Location Location Details Encounter Type Encounter Number Reason For Visit Attending Provider ADM Date DC Date Status Source [facility] Emergency [id number] Miguel Angel Hernandez 04/09/2017 04/09/2017 [facility] Emergency [id number] Ryan Benson 04/10/2017 04/10/2017 [facility] Procedures No Data Provided for This Section Assessment and Plan No Data Provided for This Section Plan of Care No Data Provided for This Section Social History Social History Date Source Social History TypeResponse Smoking Status Never smoker; Exposure to Tobacco Smoke None; Cigarette Smoking Last 365 Days No; Reg Smoking Cessation Counseling No 04/10/2017 [facility] Social History TypeResponse Smoking Status Never smoker; Exposure to Tobacco Smoke None; Cigarette Smoking Last 365 Days No; Reg Smoking Cessation Counseling No 04/10/2017 [facility] Family History No Data Provided for This Section Advance Directives No Data Provided for This Section Functional Status No Data Provided for This Section
--- NOTE | 2019-04-09 08:45 | NUR ---
0845am bedside report received from ROSALBA Bass. Alert oriented and appropriate, PERRLA, respirations even and unlabored to room air. Pulses x4 extremities equal and strong. Pedal pulses PT/DP x4 Cap fill brisk < 3 sec. Rt groin manual pull No signs hematoma or oozing. Skin warm and dry integrity appears D/I. IV 20g to left hand, presents healthy w/o s/s of infiltration or complaint. Abdomen soft and supple. pt offered toileting, denies need to urinate or defecate. No personal affects with patient. Family son at bedside spoke pt being evaluated for surgical consult. Pt and family verbalizes understanding of POC. Currently w/o complaint of pain or need. No gross issues pain,pallor,pressure or dysrhythmia. Void qs on bed pain. ds/rn
--- NOTE | 2019-04-09 12:45 | NUR ---
1245Pt meets DC criteria. Rt Groin assessed for s/s of complication and presence of hematoma. warm, dry, no discolor, and pulses present. IV removed from left hand. Distal tip appears intact. VS WNL. Pt denies pain, sob, or need at this time. Family at bedside. Review of discharge paperwork and follow up instructions. verbalized understanding. Pt to wheelchair and transported to front of hospital. Transferred to private vehicle under own strength w/o incident with DC paperwork in hand. - ds/rn
--- NOTE | 2019-04-09 15:04 | Operative Report ---
DATE OF PROCEDURE: 04/09/2019 SURGEON: Nabil Orellana MD TITLE OF THE PROCEDURE: Left cardiac catheterization. INDICATIONS: Congestive heart failure, strongly abnormal nuclear stress test showing partially reversible large burden of anterior apical and septal segments. TECHNICAL DETAILS: After the usual sterile preparation and draping procedure, intravenous Versed and fentanyl given for sedation, local xylocaine for anesthesia. A 4-Mexican sheath established in place. Juliane left 4 and 3DRC catheters to engage the coronary, pigtail for hemodynamic measurement and left ventriculogram. At the end of the procedure, sheath was removed, hemostasis achieved manually. No complications. No blood loss. RESULTS: A. Coronary angiogram: 1. Left main, 70% distal lesion extending into the circumflex and the LAD. 2. LAD, proximally 90 to 95 complex long lesion followed by 60 to 70 almost to the mid LAD, very large LAD. 3. Circumflex coronary artery, ostial lesion at 80%. 4. Ramus moderate-size seems to be free of disease. 5. Right coronary artery, dominant artery with minimal plaquing. a. Hemodynamic: Aorta pressure 170/80. LV pressure 170/20. b. Left ventriculogram is the right anterior oblique view, showed dilated ventricle with akinetic anterior apical segment. Left ventricular ejection fraction of 20% IMPRESSION: 1. 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 2. Severe left ventricular dysfunction. RECOMMENDATIONS: Coronary artery bypass surgery to the LAD, to the circumflex and to the right coronary artery or if the patient rejected by surgeon, then very high-risk Impella procedure. COMPLICATIONS: None. BLOOD LOSS: None. Nabil Orellana MD MOJ/MODL /[id number]
== END | disposition home or self-care (01) ==
LOC: CATH LAB 06:17
PROVIDERS: ATTEND Internal Medicine Cardiovascular Disease
DX: I25.118 Atherosclerotic heart disease of native coronary artery with other forms of angina pectoris (principal); I11.0 Hypertensive heart disease with heart failure; I50.22 Chronic systolic (congestive) heart failure; R94.39 Abnormal result of other cardiovascular function study; I44.7 Left bundle-branch block, unspecified; R53.81 Other malaise; Z01.812 Encounter for preprocedural laboratory examination; Z01.818 Encounter for other preprocedural examination; Z79.82 Long term (current) use of aspirin
CPT/HCPCS: 36415; 71046; 80053; 80061; 85025; 85610; 85730; 93458; C1766; C1887; J1644; J2001; J2250; J3010; J7030; Q9967; 75625

== ENCOUNTER 2019-10-08 06:19 | Observation (INO) | payer MEDICARE ==
--- NOTE | 2019-10-07 09:57 | NUR ---
Patient reports shortness of breath that started this morning. Patient reports shortness of breath whenever she exerts. Patient reports the last time she took furosemide was on sunday10/04/2019. Patient reports just coming back from cruise. Patient reports she did not visit and was not around anyone who had visited [place].
--- NOTE | 2019-10-07 10:15 | NUR ---
At 1000 Offered to patient to take to Emergency room to be evaluated for new onset of shortness of breath. Patient declined at this time. Instructed patient to contact business dean Dr. Orellana to let them know about new onset of shortness of breath that started this morning. Patient verbalized understanding. At 1015 patient stated she "did not feel short of breath anymore after resting" and ambulated with steady gait back to lab waiting area. Patient still instructed to contact business dean Dr. Orellana to let him know. Patient verbalized understanding.
[2019-10-07 10:43] LABS: BASOPHILS # (AUTO) 0.1 (0.0-0.1); BASOPHILS % 0.6 % (0.0-1.0); EOSINOPHILS # (AUTO) 0.5 (0.0-0.4); EOSINOPHILS % 5.2 % (0.0-6.0); HEMATOCRIT 36.8 % (34.2-44.1); HEMOGLOBIN 11.9 g/dL (12.0-16.0); LYMPHOCYTES # (AUTO) 1.2 (1.0-3.2); LYMPHOCYTES % 13.9 % (18.0-39.1); MEAN CORPUSCULAR HEMOGLOBIN 28.4 pg (28-32); MEAN CORPUSCULAR HGB CONC 32.3 g/dL (31-35); MEAN CORPUSCULAR VOLUME 87.8 fL (81-99); MONOCYTES # (AUTO) 0.6 (0.2-0.8); MONOCYTES % 7.3 % (4.4-11.3); NEUTROPHILS # (AUTO) 6.4 (2.1-6.9); NEUTROPHILS % 72.8 % (38.7-80.0); PLATELET COUNT 254 x10e3/uL (140-360); RED BLOOD COUNT 4.19 x10e6/uL (3.6-5.1); RED CELL DISTRIBUTION WIDTH 15.9 % (11.7-14.4)
[2019-10-07 10:54] LABS: INR 0.96; PROTHROMBIN TIME 13.4 seconds (11.9-14.5)
[2019-10-07 10:58] LABS: ANION GAP 11.5 mmol/L (8-16); BLOOD UREA NITROGEN 22 mg/dL (7-26); BUN/CREATININE RATIO 27 (6-25); CALCIUM 9.1 mg/dL (8.4-10.2); CARBON DIOXIDE 29 mmol/L (22-29); CHLORIDE 106 mmol/L (98-107); CREATININE, SERUM 0.83 mg/dL (0.57-1.11); EST GLOMERULAR FILTRATION RATE > 60 ML/MIN (60-); GLUCOSE 102 mg/dL (74-118); POTASSIUM 4.5 mmol/L (3.5-5.1); SODIUM 142 mmol/L (136-145)
[~2019-10-08] VITALS: Ht 160 cm; Wt 74.4 kg
[2019-10-08] VITALS (13 sets, daily range): BP systolic 139–170; BP diastolic 61–95
[~2019-10-08 06:19] MED LIST changes: +ATORVASTATIN CA20 MG PO; +COLACE100 MG PO; -FENTANYL CITRATE/PF 100MCG/2 ML INJ ONE; -HEPARIN SOD (PORCINE) 1000 UNIT/ML 30ML ONE; -HEPARIN SOD/SOD CHLORIDE 2,000 ML ONE; -IOPAMIDOL 370 MG/ML 200 ML INFUS..BTL INJ ONE; -LIDOCAINE HCL 2% LOCAL 20 ML VIAL ONE; -MIDAZOLAM HCL 2 MG/2 ML VIAL ONE; -NITROGLYCERIN/D5W 200 MCG/ML 250 ML ONE; -SODIUM CHLORIDE 0.9% 1000ML 1,000 ML ONE
[2019-10-08] MEDS ORDERED: MIDAZOLAM HCL 2 MG/2 ML VIAL ONE ×2 (07:14→08:16)
[2019-10-08] MEDS ORDERED: BACITRACIN 50,000 UNIT VIAL ONE (07:15)
[2019-10-08] MEDS ORDERED: FENTANYL CITRATE/PF 100MCG/2 ML INJ ONE (07:15)
[2019-10-08] MEDS ORDERED: SODIUM CHLORIDE 0.9% 50ML 50 ML ONE (07:16)
[2019-10-08] MEDS ORDERED: VANCOMYCIN 1GM/NS 250 ML 250 ML ONE (07:16)
[2019-10-08] MEDS ORDERED: CEFAZOLIN SOD 1 GM VIAL ONE (07:16)
[2019-10-08] MEDS ORDERED: LIDOCAINE HCL 2% LOCAL 20 ML VIAL ONE (07:16)
[2019-10-08] MEDS ORDERED: SODIUM CHLORIDE 0.9% 1000ML 2,000 ML ONE (07:17)
[2019-10-08] MEDS ORDERED: SODIUM CHLORIDE 0.9% 500ML 500 ML ONE (07:17)
--- NOTE | 2019-10-08 10:00 | NUR ---
1000am RECEIVING NOTE [employer]............................................................... Bedside report received from ROSALBA Romero. Identifierx2. Alert oriented and appropriate, PERRLA, respirations even and unlabored to room air. Pulses x4 extremities equal and strong. Pedal pulses PT/DP X4 Cap fill brisk < 3 sec. Left sc pressure dressing intact and dry from BV device A paced. Skin warm and dry integrity appears D/I IV 20g to left hand, presents healthy w/o s/s of infiltration or complaint. Abdomen soft and supple. pt offered toileting, denies need to urinate or defecate. No personal affects with patient. Family son Franklin at enma.Pt and family verbalizes understanding of POC. Awaiting bed dispostion.Rm 112 Stat Cxr ordered and called Radiology to finish ordered test. Currently w/o complaint of pain or need. Patient introduced to cath team and brief summary provided to team. -evelio/rn
--- NOTE | 2019-10-08 11:04 | NUR ---
1100 Xray dept here. Awaiting room ready ds/rn
--- NOTE | 2019-10-08 11:13 | NUR ---
1113 Called report to ROSALBA Waite Transferred to floor care with tele and family at bedside evelio/[email or web address]
--- NOTE | 2019-10-08 11:27 | Diagnostic Imaging Report ---
EXAMINATION: CHEST XRAY POST PROCEDURE INDICATION: Postoperative COMPARISON: Chest radiograph 04/04/2019 FINDINGS: LINES/TUBES:Interval placement of left chest AICD. LUNGS:The lungs are hyperinflated. No focal consolidation or pulmonary edema. PLEURA:No pleural effusion or pneumothorax. MEDIASTINUM:Cardiomediastinal silhouette is stably enlarged. Atherosclerotic calcifications of the thoracic aorta. BONES/SOFT TISSUES:No acute osseous injury. Sternotomy wires in place. ABDOMEN:No free air under the diaphragm. IMPRESSION: Status post left chest AICD placement. No pneumothorax. Unchanged cardiomegaly. No focal pneumonia or pulmonary edema. Signed by: Fiazan Yeboah MD on 10/08/2019 11:24 AM
--- NOTE | 2019-10-08 16:00 | NUR ---
WITH STANDBY ASSIST , PT OOB TO VOID, STANDBY ASSIST BACK TO BED, CALL LIGHT WITHIN REACH, LUE SLING IN PLACE, LEFT CHEST WALL DRESSING CDI
--- NOTE | 2019-10-08 16:28 | Operative Report ---
DATE OF PROCEDURE: 10/08/2019 SURGEON: Melchor Galindo MD PREPROCEDURE DIAGNOSES: 1. 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 2. Congestive heart failure, class 3. 3. Left bundle branch block. 4. History of myocardial infarction and coronary bypass surgery more than three months ago. POSTPROCEDURE DIAGNOSES: 1. 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 2. Congestive heart failure, class 3. 3. Left bundle branch block. 4. History of myocardial infarction and coronary bypass surgery more than three months ago. ESTIMATED BLOOD LOSS: 10 mL. COMPLICATIONS: None. PROCEDURES PERFORMED: 1. Biventricular cardiac defibrillator placement. 2. Moderate sedation. Moderate conscious sedation was provided under my direct supervision by a sedation trained nurse. Sedation approximate time, 45 minutes, Versed and fentanyl. There were no complications. See sedation form for details. DESCRIPTION OF PROCEDURE: After informed consent was obtained, the patient was brought to the electrophysiology laboratory in a fasting, nonsedated state. The area over her chest was prepped and draped in the usual sterile fashion. Moderate sedation and prophylactic antibiotics were given. 1% lidocaine was used as local anesthetic and a 3 cm skin incision was made in the left subclavicular area. Electrocautery sharp and blunt dissection were used to bridge the muscular fascia and a pocket was created for event implantation of the device. Vascular access was obtained x3 in the left axillary vein using modified Seldinger technique under fluoroscopy guidance. Three sheaths were placed. Ventricular lead advanced to the RV apex. R-wave 11, pacing 0.5 at 0.5, impedance 700, then the coronary sinus was cannulated using AL2 catheter and Emanuel wire. Coronary sinus angiogram demonstrated a posterolateral branch, successfully cannulated. The pacing threshold there was 1.3 at 0.5, impedance 700 and then the atrial lead to the right atrial appendage, P-wave 4, pacing 1.3 at 0.5, impedance 700. Sheaths were removed from the body. Leads were secured to fascia using Ethibond. Pocket was irrigated with antibiotic solution using the pulse continuous loft operator. Hemostasis was meticulous. Leads connected to the device and entire new device system placed in the pocket. Incision was closed using absorbable sutures and Dermabond. The patient tolerated the procedure well. Procedure was then complete. Of note, we used vancomycin powder inside the pocket. SUMMARY OF HARDWARE IMPLANTED: The new defibrillator is [employer], serial #[id number]. The right ventricular lead is [employer], serial #[id number]. The left ventricular lead is [employer] #[id number]. The atrial lead is [employer], serial #[id number]. IMPRESSION: 1. Successful biventricular cardiac defibrillator placement. 2. No complications. PLAN: 1. Routine postop monitoring on telemetry bed. 2. Chest x-ray. 3. Follow up in two weeks. MD TOMAS Cavazos/SADIEL /[id number]
[2019-10-08] MEDS ORDERED: MORPHINE SULFATE 2 MG/ML SYR 1ML IV PRN (17:30)
--- NOTE | 2019-10-08 18:15 | NUR ---
SPOKE WITH DR MULLER, HOME MEDICATIONS RENEWED, PT TOOK OWN COREG , BP 168/77, HR 82BPM AT THIS TIME, AND EYE TABLET, NURSE AT SIDE, PT EDUCATED TO NOT TAKE ANY MEDICATIONS WITHOUT NURSE AT SIDE, PT VERBALIZED UNDERSTANDING
--- NOTE | 2019-10-08 19:23 | NUR ---
Received bedside report from day nurse. Patient awake and resting in bed, no s/s of distress at this time. All safety measures in place. Will continue to monitor.
--- NOTE | 2019-10-08 20:32 | NUR ---
Patient's BP at 170/95, stating that she already took her second dose of carvedilol today. Also c/o runny nose. Spoke with Dr. Guy and received orders for hydralazine 10 mg IV Q4H PRN BP greater than 160, and loratidine 10 mg PO once.
[2019-10-08] MEDS ORDERED: ATORVASTATIN 20 MG TAB PO SCH (21:00)
[2019-10-08] MEDS ORDERED: LORATADINE 10 MG TAB PO SCH (21:15)
[2019-10-08] MEDS ORDERED: SODIUM CHLORIDE 0.9% 250ML 250 ML ONE (21:38)
[2019-10-08] MEDS: CEFAZOLIN SOD 2 GM/D5W 50ML 50 ML IV SCH (21:46)
[2019-10-08] MEDS: HYDRALAZINE HCL 20 MG/ML VIAL IV PRN (21:47)
[2019-10-08] MEDS ORDERED: CEFAZOLIN SOD 1 GM VIAL IV SCH (22:00)
--- NOTE | 2019-10-08 23:25 | NUR ---
Patient BP elevated to 168/70, seen vomiting in restroom, stating, "I just don't feel good." Telemetry rhythm v-paced @ 89. Paged Dr. Guy's answering service. Was not able to reach anyone. Will continue to monitor patient and attempt another call at a later time.
--- NOTE | 2019-10-08 23:30 | NUR ---
Patient currently resting in recliner, states that she feels better after vomiting and that her "blood pressure always runs about that high." Denies any additional needs at this time. Call light placed within reach. All safety measures in place. Will continue to monitor.
[2019-10-09] VITALS (8 sets, daily range): BP systolic 146–182; BP diastolic 65–94
[2019-10-09] MEDS: CEFAZOLIN SOD 2 GM/D5W 50ML 50 ML IV SCH ×2 (04:15→11:45)
[2019-10-09] MEDS: HYDRALAZINE HCL 20 MG/ML VIAL IV PRN (04:22)
--- NOTE | 2019-10-09 04:37 | NUR ---
Administered PRN hydralazine for BP 177/74. Patient reported c/o n/v afterwards, stating, "I wonder if that medicine you gave me is making me sick." No other s/s of distress noted otherwise. Will continue to monitor and re-check BP later, and notify .
--- NOTE | 2019-10-09 06:34 | NUR ---
Dr. Guy's staff member here to see patient and test defibrillator. Device working well. Informed him that patient's BP is now 180/77 and that she believes hydralazine is making her sick and vomit. States he will inform Dr. Guy and let him know. Will continue to monitor patient.
--- NOTE | 2019-10-09 07:00 | NUR ---
Bedside report given to day nurse. Patient sitting up in chair, no s/s of distress at this time. All safety measures in place.
--- NOTE | 2019-10-09 07:00 | NUR ---
bedside report received pt in stable in condition, denies any vomiting at this time, updated on poc vocied understanding, call light in reach will continue to monitor
[2019-10-09] MEDS ORDERED: CARVEDILOL 12.5 MG TAB PO SCH (09:00)
[2019-10-09] MEDS ORDERED: FUROSEMIDE 40 MG TAB PO SCH (09:00)
[2019-10-09] MEDS ORDERED: DOCUSATE SODIUM 100 MG CAP PO SCH (09:00)
[2019-10-09] MEDS ORDERED: LOSARTAN POTASSIUM 25 MG TAB PO SCH (09:00)
[2019-10-09] MEDS ORDERED: ASPIRIN 81 MG CHEW TAB PO SCH (09:00)
[2019-10-09] MEDS ORDERED: POTASSIUM CHLORIDE 10MEQ EA PO SCH (09:00)
[2019-10-09] MEDS ORDERED: OCUVITE PRESERVISION TABLET PO SCH (09:00)
--- NOTE | 2019-10-09 10:05 | NUR ---
pt vomiting, washcloth given for comfort, no nausea meds on file, paged dr john, awaiting callback
--- NOTE | 2019-10-09 11:38 | NUR ---
spoke with carol with dr john office,informed of pt vomiting and no nausea orders, states md is in procedure she will call me back with orders.
[2019-10-09] MEDS ORDERED: ONDANSETRON HCL INJ 2MG/ML 2ML 2 MG/ML VIAL IV PRN (12:15)
--- NOTE | 2019-10-09 13:30 | NUR ---
notified by telemetry, pt hr 120's in vtach, pt standing, in bathroom brushing teeth, telemetry showing vtach 120's, pt assisted back to bed, denies chest pain, or racing heart feeling, dr john notifed spoke with nurse medina, strips faxed as per requested by md, awaiting call back for further orders.
--- NOTE | 2019-10-09 14:39 | NUR ---
spoke with carol with dr sidhu office, states strips are not vt tach, coming from [facility], pt ok to discharge home
--- NOTE | 2019-10-10 10:59 | NUR ---
SEBASTIAN EXPLAINED TO PT, SIGNED BY PT AND PLACED IN CHART COPY OF [facility] [employer]
--- NOTE | 2019-10-16 04:45 | Discharge Summary ---
REASON FOR ADMISSION: Elective procedure. HOSPITAL COURSE: Ms. Meier presented for elective procedure. She underwent cardiac defibrillator placement. See report for details. No complications. On the next day, she was discharged in stable condition. Follow up in two weeks. See medication reconciliation form. MD TOMAS Cavazos/MODL /[id number]
== END 2019-10-09 15:51 | disposition home or self-care (01) ==
LOC: CATH LAB 06:19 → PACU V 10:12 → MED/SURG 11:27
PROVIDERS: ADMIT Internal Medicine; ATTEND Internal Medicine
DX: I25.5 Ischemic cardiomyopathy (principal); I50.42 Chronic combined systolic (congestive) and diastolic (congestive) heart failure; I44.7 Left bundle-branch block, unspecified; I25.2 Old myocardial infarction; I25.10 Atherosclerotic heart disease of native coronary artery without angina pectoris; Z95.1 Presence of aortocoronary bypass graft; I11.0 Hypertensive heart disease with heart failure
CPT/HCPCS: 33225; 33249; 36415; 80048; 85025; 85610; 93005; C1721; C1769 ×2; G0378 ×2; J0360 ×2; J0690 ×2; J2001; J2250; J2270; J3010; J3370; J7030; J7040; J7050; 99152; 99153

== ENCOUNTER 2021-01-03 13:48 | Inpatient (IN) | payer MEDICARE ==
[~2021-01-03] VITALS: Ht 160 cm; Wt 77.7 kg
[2021-01-03] MEDS ORDERED: MORPHINE SULFATE INJ 2 MG/ML SYR IV PRN (16:15)
[2021-01-03] MEDS ORDERED: HEPARIN SOD (PORCINE) 5,000 UNIT/ML VIAL SC ONE (16:30)
[2021-01-03] MEDS: MORPHINE SULFATE INJ 4 MG/ML INJ 1ML IV PRN (17:18)
[2021-01-03] MEDS: ONDANSETRON HCL INJ 2MG/ML 2ML 2 MG/ML VIAL IV PRN (17:18)
[2021-01-03 17:29] VITALS: BP 166/56
[2021-01-03 17:30] VITALS: BP 166/56
[2021-01-03 17:40] LABS: BASOPHILS # (AUTO) 0.1 (0.0-0.1); BASOPHILS % 0.4 % (0.0-1.0); EOSINOPHILS # (AUTO) 0.2 (0.0-0.4); EOSINOPHILS % 1.3 % (0.0-6.0); HEMATOCRIT 41.8 % (34.2-44.1); HEMOGLOBIN 13.7 g/dL (12.0-16.0); LYMPHOCYTES # (AUTO) 1.1 (1.0-3.2); LYMPHOCYTES % 7.1 % (18.0-39.1); MEAN CORPUSCULAR HEMOGLOBIN 30.1 pg (28-32); MEAN CORPUSCULAR HGB CONC 32.8 g/dL (31-35); MEAN CORPUSCULAR VOLUME 91.9 fL (81-99); MONOCYTES # (AUTO) 0.7 (0.2-0.8); MONOCYTES % 4.4 % (4.4-11.3); NEUTROPHILS # (AUTO) 13.6 (2.1-6.9); NEUTROPHILS % 86.2 % (38.7-80.0); PLATELET COUNT 217 x10e3/uL (140-360); RED BLOOD COUNT 4.55 x10e6/uL (3.6-5.1); RED CELL DISTRIBUTION WIDTH 14.2 % (11.7-14.4)
[2021-01-03 17:54] LABS: ALBUMIN 3.8 g/dL (3.5-5.0); ALBUMIN/GLOBULIN RATIO 0.9 (0.8-2.0); ANION GAP 17.3 mmol/L (8-16); CALCIUM 9.2 mg/dL (8.4-10.2); CREATININE, SERUM 0.99 mg/dL (0.57-1.11); POTASSIUM 4.3 mmol/L (3.5-5.1)
[2021-01-03] MEDS ORDERED: COREG12.5 MG PO (18:52)
[2021-01-03] MEDS ORDERED: LASIX40 MG PO (18:52)
[2021-01-03] MEDS ORDERED: CLONIDINE HCL0.1 MG PO (18:52)
[2021-01-03 20:00] VITALS: BP 128/67
[2021-01-03 20:48] VITALS: BP 128/67
[2021-01-04] VITALS (8 sets, daily range): BP systolic 119–141; BP diastolic 47–62
[2021-01-04] MEDS: MORPHINE SULFATE INJ 4 MG/ML INJ 1ML IV PRN (05:14)
[2021-01-04] MEDS: ONDANSETRON HCL INJ 2MG/ML 2ML 2 MG/ML VIAL IV PRN ×3 (05:23→14:36)
[2021-01-04] MEDS ORDERED: HYDROMORPHONE 1MG/1ML INJ IV PRN (09:15)
[2021-01-04] MEDS ORDERED: CLONIDINE HCL 0.1 MG TAB PO PRN (09:15)
[2021-01-04] MEDS ORDERED: FAMOTIDINE 20 MG/2 ML VIAL IV NR (09:15)
[2021-01-04] MEDS ORDERED: FUROSEMIDE INJ 10 MG/ML 4 ML VIAL IV NR (09:15)
[2021-01-04] MEDS ORDERED: HYDROMORPHONE 1MG/1ML INJ IV ONE (09:15)
[2021-01-04] MEDS ORDERED: POTASSIUM CHLORIDE 10MEQ EA PO NR (09:15)
[2021-01-04] MEDS: CEFTRIAXONE 1 GM in SODIUM CHLORIDE 0.9% 50ML 50 ML IV SCH (09:30)
[2021-01-04] MEDS: CARVEDILOL 12.5 MG TAB PO SCH ×2 (10:15→17:00)
[2021-01-04] MEDS: D5.45%NS/KCL 20MEQ 1,000 ML IV SCH (10:20)
[2021-01-04 11:08] LABS: CLARITY,URINE SL CLOUDY (CLEAR); COLOR,URINE YELLOW (YELLOW)
[2021-01-04 11:09] LABS: KETONES,URINE NEGATIVE (NEGATIVE); LEUKOCYTE ESTERASE ,URINE SMALL (NEGATIVE); NITRITE,URINE POSITIVE (NEGATIVE); PROTEIN,URINE DIPSTICK NEGATIVE (NEGATIVE); URINE UROBILINOGEN 0.2 mg/dL (0.2 - 1)
[2021-01-04 11:51] LABS: BACTERIA,URINE MANY /HPF; EPITHELIAL CELLS,URINE MODERATE /LPF; RBC,URINE 21-50 /HPF (0-5); WBC,URINE (MAN) >50 /HPF (0-5)
[2021-01-04] MEDS ORDERED: LIDOCAINE HCL 2% LOCAL INJ 5 ML SDV VIAL INJ ONE (13:04)
[2021-01-04] MEDS ORDERED: PROPOFOL IV EMULSION 10 MG/ML 20 ML VIAL ONE (13:04)
[2021-01-04] MEDS ORDERED: SUCCINYLCHOLINE CHLORIDE 20 MG/ML 10ML VIAL ONE (13:04)
[2021-01-04] MEDS ORDERED: CEFAZOLIN SOD 1 GM VIAL ONE (13:04)
[2021-01-04] MEDS ORDERED: ONDANSETRON HCL INJ 2MG/ML 2ML 2 MG/ML VIAL ONE (13:04)
[2021-01-04] MEDS ORDERED: EPHEDRINE SULFATE INJ 50 MG/ML VIAL ONE (13:04)
[2021-01-04] MEDS ORDERED: DEXAMETHASONE SOD PHOS INJ 4 MG/ML VIAL ONE (13:04)
[2021-01-04] MEDS ORDERED: POVIDONE IODINE 0.05% 0.05 % ML PO ONE (13:04)
[2021-01-04] MEDS ORDERED: SEVOFLURANE INHAL SOLN 250 ML PEN BTL ONE (13:04)
[2021-01-04] MEDS ORDERED: KETOROLAC TROMETHAMINE 30 MG/ML VIAL ONE (13:04)
[2021-01-04] MEDS ORDERED: ROCURONIUM BROMIDE 10 MG/ML 5ML VIAL IV ONE (13:04)
[2021-01-04] MEDS ORDERED: TRANEXAMIC ACID 1,000 MG/10 ML ML ONE (13:13)
[2021-01-04] MEDS ORDERED: VANCOMYCIN HCL 1 GM VIAL ONE (13:13)
[2021-01-04] MEDS ORDERED: ROPIVACAINE 246.25 MG, EPINEPHRINE HCL 1:1000 1ML 0.5 MG, CLONIDINE HCL 0.08 MG, KETORO... INJ ONE ×5 (14:00)
[2021-01-04] MEDS: FAMOTIDINE 20 MG/2 ML VIAL IV SCH (15:40)
[2021-01-04] MEDS ORDERED: KETOROLAC TROMETHAMINE 30 MG/ML VIAL IV PRN (19:15)
[2021-01-04] MEDS ORDERED: MORPHINE SULFATE INJ 4 MG/ML INJ 1ML IV PRN (19:15)
[2021-01-04] MEDS ORDERED: HYDROCODONE/APAP 5MG-325MG TAB PO PRN (19:15)
[2021-01-04 19:42] LABS: BASOPHILS # (AUTO) 0.1 (0.0-0.1); BASOPHILS % 0.4 % (0.0-1.0); EOSINOPHILS # (AUTO) 0.5 (0.0-0.4); EOSINOPHILS % 4.2 % (0.0-6.0); HEMOGLOBIN 12.1 g/dL (12.0-16.0); LYMPHOCYTES # (AUTO) 0.9 (1.0-3.2); LYMPHOCYTES % 7.4 % (18.0-39.1); MEAN CORPUSCULAR HEMOGLOBIN 30.1 pg (28-32); MEAN CORPUSCULAR HGB CONC 31.8 g/dL (31-35); MEAN CORPUSCULAR VOLUME 94.5 fL (81-99); MONOCYTES # (AUTO) 0.7 (0.2-0.8); MONOCYTES % 5.9 % (4.4-11.3); NEUTROPHILS # (AUTO) 9.6 (2.1-6.9); NEUTROPHILS % 81.1 % (38.7-80.0); PLATELET COUNT 169 x10e3/uL (140-360); RED BLOOD COUNT 4.02 x10e6/uL (3.6-5.1); RED CELL DISTRIBUTION WIDTH 14.1 % (11.7-14.4)
[2021-01-04 20:00] LABS: ANION GAP 11.2 mmol/L (8-16); CREATININE, SERUM 1.04 mg/dL (0.57-1.11); POTASSIUM 4.2 mmol/L (3.5-5.1)
[2021-01-04] MEDS: CEFAZOLIN SOD 1 GM/NS 50ML 50 ML IV SCH (21:34)
[2021-01-05] VITALS (8 sets, daily range): BP systolic 112–127; BP diastolic 42–47
[2021-01-05 05:09] LABS: BASOPHILS % 0.2 % (0.0-1.0); HEMATOCRIT 35.8 % (34.2-44.1); HEMOGLOBIN 11.5 g/dL (12.0-16.0); LYMPHOCYTES # (AUTO) 0.5 (1.0-3.2); LYMPHOCYTES % 4.3 % (18.0-39.1); MEAN CORPUSCULAR HEMOGLOBIN 30.3 pg (28-32); MEAN CORPUSCULAR HGB CONC 32.1 g/dL (31-35); MEAN CORPUSCULAR VOLUME 94.5 fL (81-99); MONOCYTES # (AUTO) 0.6 (0.2-0.8); MONOCYTES % 4.6 % (4.4-11.3); NEUTROPHILS # (AUTO) 10.9 (2.1-6.9); NEUTROPHILS % 90.4 % (38.7-80.0); PLATELET COUNT 195 x10e3/uL (140-360); RED BLOOD COUNT 3.79 x10e6/uL (3.6-5.1)
[2021-01-05 05:33] LABS: ALBUMIN 2.9 g/dL (3.5-5.0); ALBUMIN/GLOBULIN RATIO 0.8 (0.8-2.0); ANION GAP 12.2 mmol/L (8-16); CALCIUM 7.9 mg/dL (8.4-10.2); CREATININE, SERUM 1.07 mg/dL (0.57-1.11); POTASSIUM 4.2 mmol/L (3.5-5.1)
[2021-01-05] MEDS: CEFAZOLIN SOD 1 GM/NS 50ML 50 ML IV SCH ×2 (06:05→14:00)
[2021-01-05] MEDS: D5.45%NS/KCL 20MEQ 1,000 ML IV SCH (06:05)
[2021-01-05] MEDS ORDERED: FUROSEMIDE INJ 10 MG/ML 4 ML VIAL IV SCH (09:00)
[2021-01-05] MEDS ORDERED: POTASSIUM CHLORIDE 10MEQ EA PO SCH ×2 (09:00)
[2021-01-05] MEDS: FAMOTIDINE 20 MG/2 ML VIAL IV SCH ×2 (09:50→17:32)
[2021-01-05] MEDS: CARVEDILOL 12.5 MG TAB PO SCH ×2 (09:52→17:33)
[2021-01-05] MEDS: CEFTRIAXONE 1 GM in SODIUM CHLORIDE 0.9% 50ML 50 ML IV SCH (09:52)
[2021-01-05] MEDS: ENOXAPARIN SOD INJ 40 MG/0.4 ML SYR SC SCH (17:33)
[2021-01-05] MEDS ORDERED: ACETAMINOPHEN 1000 MG/100 ML IV PRN (19:15)
[2021-01-06] VITALS (8 sets, daily range): BP systolic 130–139; BP diastolic 45–64
[2021-01-06 04:48] LABS: BASOPHILS % 0.4 % (0.0-1.0); EOSINOPHILS # (AUTO) 0.4 (0.0-0.4); EOSINOPHILS % 4.1 % (0.0-6.0); HEMATOCRIT 32.5 % (34.2-44.1); HEMOGLOBIN 10.4 g/dL (12.0-16.0); LYMPHOCYTES # (AUTO) 1.3 (1.0-3.2); LYMPHOCYTES % 13.8 % (18.0-39.1); MEAN CORPUSCULAR HEMOGLOBIN 29.5 pg (28-32); MEAN CORPUSCULAR VOLUME 92.3 fL (81-99); MONOCYTES # (AUTO) 0.9 (0.2-0.8); MONOCYTES % 9.4 % (4.4-11.3); NEUTROPHILS # (AUTO) 6.5 (2.1-6.9); PLATELET COUNT 150 x10e3/uL (140-360); RED BLOOD COUNT 3.52 x10e6/uL (3.6-5.1)
[2021-01-06 05:18] LABS: ALANINE AMINOTRANSFERASE 18 IU/L (0-55); ALBUMIN 2.6 g/dL (3.5-5.0); ALBUMIN/GLOBULIN RATIO 0.8 (0.8-2.0); ALKALINE PHOSPHATASE 71 IU/L (40-150); ANION GAP 9.3 mmol/L (8-16); BLOOD UREA NITROGEN 29 mg/dL (7-26); BUN/CREATININE RATIO 38 (6-25); CALCIUM 7.7 mg/dL (8.4-10.2); CARBON DIOXIDE 27 mmol/L (22-29); CHLORIDE 109 mmol/L (98-107); CREATININE, SERUM 0.77 mg/dL (0.57-1.11); EST GLOMERULAR FILTRATION RATE > 60 ML/MIN (60-); GLUCOSE 113 mg/dL (74-118); POTASSIUM 4.3 mmol/L (3.5-5.1); SODIUM 141 mmol/L (136-145)
[2021-01-06] MEDS: FUROSEMIDE 40 MG TAB PO SCH (09:00)
[2021-01-06] MEDS: CEFTRIAXONE 1 GM in SODIUM CHLORIDE 0.9% 50ML 50 ML IV SCH (09:00)
[2021-01-06] MEDS: CARVEDILOL 12.5 MG TAB PO SCH ×2 (09:00→16:47)
[2021-01-06] MEDS: ONDANSETRON HCL INJ 2MG/ML 2ML 2 MG/ML VIAL IV PRN (10:03)
[2021-01-06] MEDS: HYDROCODONE/APAP 7.5MG-325MG 1 EA TAB PO PRN ×2 (10:45→23:38)
[2021-01-06] MEDS: FAMOTIDINE 20 MG/2 ML VIAL IV SCH ×2 (10:58→17:06)
[2021-01-06] MEDS ORDERED: SODIUM CHLORIDE 0.9% 250ML 250 ML ONE (12:05)
[2021-01-06] MEDS: ENOXAPARIN SOD INJ 40 MG/0.4 ML SYR SC SCH (17:06)
[2021-01-06] MEDS ORDERED: ATORVASTATIN 20 MG TAB PO SCH (21:00)
[2021-01-07] VITALS: BP 140/51
[2021-01-07 04:00] VITALS: BP 145/56
[2021-01-07 07:56] VITALS: BP 126/56
[2021-01-07] MEDS: HYDROCODONE/APAP 7.5MG-325MG 1 EA TAB PO PRN (08:25)
[2021-01-07] MEDS: FAMOTIDINE 20 MG/2 ML VIAL IV SCH (08:36)
[2021-01-07] MEDS: CEFTRIAXONE 1 GM in SODIUM CHLORIDE 0.9% 50ML 50 ML IV SCH (08:37)
[2021-01-07 08:48] VITALS: BP 126/56
[2021-01-07] MEDS: CARVEDILOL 12.5 MG TAB PO SCH (09:00)
[2021-01-07] MEDS: FUROSEMIDE 40 MG TAB PO SCH (09:00)
[2021-01-07 12:01] VITALS: BP 129/50
== END 2021-01-07 14:19 | DRG 521 ==
LOC: ER 14:29 → ERHOLD 16:08 → MED/SURG3 17:12
PROVIDERS: ADMIT Internal Medicine; ATTEND Internal Medicine
PROC: 0SRS0JA Replacement of Left Hip Joint, Femoral Surface with Synthetic Substitute, Uncemented, Open Approach (ICD-10-PCS; principal; 2021-01-04 16:30)
DX: S72.002A Fracture of unspecified part of neck of left femur, initial encounter for closed fracture (principal); I50.23 Acute on chronic systolic (congestive) heart failure; Y92.009 Unspecified place in unspecified non-institutional (private) residence as the place of occurrence of the external cause; I11.0 Hypertensive heart disease with heart failure; Z95.810 Presence of automatic (implantable) cardiac defibrillator; Z95.1 Presence of aortocoronary bypass graft; Z79.82 Long term (current) use of aspirin; W01.0XXA Fall on same level from slipping, tripping and stumbling without subsequent striking against object, initial encounter; Z20.822 Contact with and (suspected) exposure to COVID-19
CPT/HCPCS: 36415; 51700; 70450; 71045; 72170; 80048; 80053; 81001; 85025; 86850; 86900; 93005; 93971; 99251; 99284; C1713; C1776; J0171; J0330; J0690; J0696; J1100; J1170; J1644; J1650; J1885; J1940; J2001; J2270; J2405; J2795; J3370; J7050; U0002